=== PATIENT | male | born 1950 | race Caucasian/White ===

== ENCOUNTER → 2017-01-16 | Outpatient (CLI) | payer OTHER ==
[2013-12-28 11:56] VITALS: BP 189/98
[2017-01-16 10:52] LABS: ALANINE AMINOTRANSFERASE 17 Units/L (12-78); ALBUMIN 3.6 g/dL (3.4-5.0); ALKALINE PHOSPHATASE 75 Units/L (46-116); BLOOD UREA NITROGEN 24 mg/dL (7-18); CALCIUM 8.6 mg/dL (8.5-10.1); CARBON DIOXIDE 27.3 mmol/L (21-32); CHLORIDE 109 mmol/L (98-107); COR NA(FOR HYPERGLY) 144 mmol/L (136-145); CREATININE 1.12 mg/dL (0.70-1.30); GLUCOSE 113 mg/dL (65-99); SODIUM 144 mmol/L (136-145); TOTAL PROTEIN 7.5 g/dL (6.4-8.2); eGFR BLACK RACES > 60 (>60); eGFR NON BLACK RACES > 60 (>60)
[2017-01-16 10:55] LABS: ASPARTATE AMINO TRANSFERASE 18 Units/L (15-37)
[2017-01-16 11:35] LABS: ERYTHROCYTE SEDIMENTATION RATE 11 MM/HOUR (0-15)
[2017-01-16 11:40] LABS: BASOPHILS # (AUTO) 0.1 X10^3/uL (0.0-0.1); BASOPHILS % (AUTO) 1.3 % (0.2-1.0); EOSINOPHILS # (AUTO) 0.4 x10^3/uL (0.0-0.2); EOSINOPHILS % (AUTO) 5.2 % (0.9-2.9); HEMATOCRIT 40.8 % (42.0-54.0); HEMOGLOBIN 13.3 g/dL (13.5-18.0); LYMPHOCYTES % (AUTO) 14.6 % (21.0-51.0); MEAN CORPUSCULAR HEMOGLOBIN 29.6 pg (27.0-34.0); MEAN CORPUSCULAR HGB CONC 32.5 g/dL (33.0-35.0); MEAN PLATELET VOLUME 10.1 fL (7.4-11.0); MONOCYTES # (AUTO) 0.7 x10^3/uL (0.3-0.8); MONOCYTES % (AUTO) 10.4 % (0.0-13.0); NEUTROPHILS # (AUTO) 4.7 x10^3/uL (2.2-4.8); NEUTROPHILS % (AUTO) 68.5 % (42.0-75.0); PLATELET COUNT 224 X10^3/uL (150.0-450.0); RED BLOOD COUNT 4.49 X10^6/uL (4.7-6.0); RED CELL DISTRIBUTION WIDTH 15.3 % (11.6-16.5); WHITE BLOOD COUNT 6.8 X10^3/uL (3.6-10.0)
--- NOTE | 2017-01-16 12:34 | RAD ---
HISTORY: Bloating, abdominal pain Study: Flat and upright abdomen, AP chest Comparison: None Findings: The abdominal gas pattern demonstrates moderately severe dilatation of the transverse colon. The rig ht colon is not dilated. Little gas is present distal to the proximal descending colon. Although thi s could represent an ileus an obstructing lesion in the mid descending colon is possible and evaluat ion with barium enema or direct visualization should be considered. No pneumoperitoneum is identifie d. There is a 4 millimeter calcification overlying the left lower renal pole likely a renal calculus . An aortoiliac stent graft is present. The chest is clear. IMPRESSION: Dilatation of the transverse sobeida proximal to the proximal to mid descending . Although this could represent an ileus the possibility of a descending colon obstructing lesion could not be excluded an d evaluation with direct visualization or barium enema should be considered. Left lower pole renal calculus Reported By:
== END ==
LOC: LAB 08:14
PROVIDERS: ATTEND Nurse Practitioner Family
DX: R10.84 Generalized abdominal pain (principal); R10.12 Left upper quadrant pain
CPT/HCPCS: 36415; 74022; 80053; 82270; 85025; 85652; 86140; 87045; 87338; 87427; 87493; 87899

== ENCOUNTER → 2017-04-06 | Outpatient (CLI) | payer OTHER ==
[2013-12-28 11:56] VITALS: BP 189/98
[2017-04-06 14:17] LABS: CRYPTOSPORIDIUM PARVUM ANTIGEN NEGATIVE (NEGATIVE); GIARDIA LAMBLIA ANTIGEN NEGATIVE (NEGATIVE)
== END ==
LOC: LAB 11:58
PROVIDERS: ATTEND Nurse Practitioner Family
DX: R19.7 Diarrhea, unspecified (principal)
CPT/HCPCS: 82270; 87045; 87328; 87329; 87336; 87338; 87427; 87493; 87899

== ENCOUNTER 2017-04-07 17:14 | Inpatient (IN) | payer OTHER ==
[2017-04-07 20:12] VITALS: BMI 26.9
[2017-04-07] MEDS ORDERED: NS 1/2 1000 ML IV 1,000 ML IV ONE (20:20)
[2017-04-07] MEDS: NS 1/2 1000 ML IV 1,000 ML IV SCH (20:49)
[2017-04-07] MEDS: PEPCID 20 MG IV PREMIX* 20 MG/50 ML BAG IV SCH (20:50)
[2017-04-07] MEDS: PROTONIX INJ 40 MG VIAL IVP SCH ×2 (20:50→21:01)
[2017-04-07] MEDS: CIPRO IV 400 MG PREMIX* 400 MG/200 ML IV.SOLN. IV SCH (20:50)
[2017-04-07] MEDS: FLAGYL IV PREMIX 500 MG BAG 500 MG/100 ML BAG IV SCH (20:50)
[2017-04-08 04:32] LABS: BILIRUBIN,URINE NEGATIVE (NEGATIVE); BLOOD/HEMOGLOBIN,URINE NEGATIVE (NEGATIVE); GLUCOSE, URINE NEGATIVE (NEGATIVE); KETONES,URINE NEGATIVE (NEGATIVE); LEUKOCYTE ESTERASE ,URINE NEGATIVE (NEGATIVE); NITRITES,URINE NEGATIVE (NEGATIVE); PROTEIN,URINE 1+ (NEGATIVE); UROBILINOGEN,URINE NORMAL (NORMAL)
[2017-04-08 04:45] LABS: APPEARANCE,URINE CLEAR (CLEAR); BACTERIA,URINE NEGATIVE /HPF (NEGATIVE); COLOR,URINE YELLOW (YELLOW); RBC,URINE 0-3 /HPF (NEGATIVE); SQUAMOUS EPITHELIAL CELL,UR FEW /HPF (NEGATIVE)
[2017-04-08] MEDS: FLAGYL IV PREMIX 500 MG BAG 500 MG/100 ML BAG IV SCH ×3 (05:49→21:55)
[2017-04-08] MEDS: NS 1/2 1000 ML IV 1,000 ML IV SCH ×3 (05:49→20:40)
[2017-04-08] MEDS ORDERED: NS 1/2 1000 ML IV 1,000 ML IV ONE ×2 (05:53→20:26)
[2017-04-08 06:20] LABS: BASOPHILS % (AUTO) 0.8 % (0.2-1.0); EOSINOPHILS # (AUTO) 0.2 x10^3/uL (0.0-0.2); EOSINOPHILS % (AUTO) 4.8 % (0.9-2.9); HEMATOCRIT 35.7 % (42.0-54.0); HEMOGLOBIN 12.1 g/dL (13.5-18.0); LYMPHOCYTES # (AUTO) 0.9 X10^3/uL (1.3-2.9); LYMPHOCYTES % (AUTO) 17.3 % (21.0-51.0); MEAN CORPUSCULAR HEMOGLOBIN 30.3 pg (27.0-34.0); MEAN CORPUSCULAR HGB CONC 33.9 g/dL (33.0-35.0); MEAN CORPUSCULAR VOLUME 89.3 fL (80.0-100.0); MEAN PLATELET VOLUME 9.9 fL (7.4-11.0); MONOCYTES # (AUTO) 0.6 x10^3/uL (0.3-0.8); MONOCYTES % (AUTO) 11.2 % (0.0-13.0); NEUTROPHILS # (AUTO) 3.4 x10^3/uL (2.2-4.8); NEUTROPHILS % (AUTO) 65.9 % (42.0-75.0); PLATELET COUNT 166 X10^3/uL (150.0-450.0); RED CELL DISTRIBUTION WIDTH 14.4 % (11.6-16.5); WHITE BLOOD COUNT 5.1 X10^3/uL (3.6-10.0)
[2017-04-08 06:43] LABS: ALANINE AMINOTRANSFERASE 17 Units/L (12-78); ALBUMIN 3.2 g/dL (3.4-5.0); ALKALINE PHOSPHATASE 60 Units/L (46-116); ASPARTATE AMINO TRANSFERASE 16 Units/L (15-37); BLOOD UREA NITROGEN 15 mg/dL (7-18); CALCIUM 8.4 mg/dL (8.5-10.1); CARBON DIOXIDE 30.9 mmol/L (21-32); CHLORIDE 107 mmol/L (98-107); CREATININE 0.94 mg/dL (0.70-1.30); GLUCOSE 85 mg/dL (65-99); SODIUM 142 mmol/L (136-145); TOTAL PROTEIN 6.4 g/dL (6.4-8.2); eGFR BLACK RACES > 60 (>60); eGFR NON BLACK RACES > 60 (>60)
--- NOTE | 2017-04-08 06:43 | RAD ---
HISTORY: Abdominal pain Study: Acute abdominal series Comparison: Abdomen series done January 16, [address] of the abdomen done April 07, 2017 Findings: The trachea is midline. The cardiac silhouette is unremarkable. The lungs are clear without focal infiltrate or effusion. The bony thorax is unremarkable. Flat plate and upright evaluation of the abdomen demonstrates a gaseous distention of the transverse colon with a small amount of bowel gas present within the descending and ascending colon regions. T he findings are similar to prior studies of January 16, 2017. No free intraperitoneal air or fluid is se en . An aortoiliac endograft is present. Multiple small stones are present involving the left kidney . Osseous structures are intact . There are some small amount of contrast present within the cecum a nd ascending colon. The caliber of the structures is normal. A small amount of contrast is present w ithin the urinary bladder. No pathological soft tissue mass or calcification can be observed. The b geoff structures are grossly intact. IMPRESSION: 1. No acute cardiopulmonary disease. 2. Findings again compatible with a transverse colon ileus. No bowel obstruction or perforation is seen. Reported By:
[2017-04-08] MEDS: CIPRO IV 400 MG PREMIX* 400 MG/200 ML IV.SOLN. IV SCH ×2 (08:58→20:15)
[2017-04-08] MEDS: PEPCID 20 MG IV PREMIX* 20 MG/50 ML BAG IV SCH ×2 (08:58→20:15)
[2017-04-08] MEDS: PROTONIX INJ 40 MG VIAL IVP SCH ×2 (08:58→20:15)
[2017-04-08] MEDS ORDERED: ULTRAM PO PRN (10:38)
--- NOTE | 2017-04-08 10:43 | DR.UPDATE ---
H&P Update History and Physical Update: WAS SEEN IN THE OFFICE ON 04/07/27. A H&P WAS COMPLETED PRIOR TO ADMISSION. PATIENT HAS BEEN SEEN AND EXAMINED WITH NO CHANGES NOTED. Changes noted: NO Yes with the following:
[2017-04-08] MEDS ORDERED: NIFEDIPINE PO SCH (10:45)
[2017-04-08] MEDS: CELEXA PO SCH (11:08)
[2017-04-08] MEDS ORDERED: D5 LR 1000 ML 1,000 ML IV ONE (11:39)
--- NOTE | 2017-04-08 12:23 | PCM.PROG ---
Progress Note - Progress Note for Day of Date: 04/08/17 - Subjective Subjective: IS ALERT AND ORIENTED, SITTING UP IN BED ON MORNING ROUNDS. AT BEDSIDE. HE CONTINUES WITH COMPLAINTS OF DIFFUSE ABDOMINAL PAIN. ABDOMEN IS NOTED WITH MODERATE DISTENSION. BOWEL SOUNDS NOTED IN ALL QUADRANTS. HE REPORTS HISTORY OF AAA WITH REPAIR. HE ALSO REPORTS HAVING TWO COLONOSCOPIES WITHIN THE PAST YEAR. VITALS THIS AM ARE 97.8-60-21-95%-120/70. CBC WNL EXCEPT WBC 5.1, RBC 4.0, HGB 12.1, HCT 35.7. CMP WNL EXCEPT CALCIUM 8.4 , ALBUMIN 3.2. WE WILL CONTINUE WITH CURRENT PLAN OF CARE. WE ARE AWAITING GI CONSULT. WE WILL RECHECK LABS AND FOLLOW UP WITH PATIENT IN AM. - Past Medical Family Social History Past Med/Fam/Surg Hx: No changes since H&P Allergies: Allergies No Known Drug Allergies Allergy (Verified 04/07/17 20:37) - Review of Systems ROS: No change since H&P - Vital Signs and I&O's Vital Signs: Temperature 97.8 F Pulse Rate [Right Radial] 59 Respiratory Rate 20 Blood Pressure [Right Arm] 122/68 Blood Pressure 189/98 O2 Sat by Pulse Oximetry 92 Intake and Output: Intake & Output 04/06/17 04/07/17 04/08/17 04/09/17 11:59 11:59 11:59 11:59 Intake Total 750 Balance 750 - Physical Exam Oriented: Normal. negative: Time, Person, Place, Not Oriented, Unable to test, Other Eyes: Normal. negative: Blurred Vision, Diplopia, Discharge, Pain, Redness, Photophobia, Other Ear: Normal. negative: Right, Left, Swelling, Ecchymosis, Hemotypanum, Abrasion , Laceration Nose: Normal. negative: Injected, Discharge, Blood, Other Throat: Normal. negative: Tonsillar Hypertrophy, Red, Exudate, Dry, Other Respiratory: Normal. negative: Right, Left, Generalized, Superior, Inferior, Diminished, Wheezes, Rales, Rhonchi, OTHER Cardiovascular: Normal. negative: Tachycardia, Bradycardia, Irregular, S3, S4, Systolic, Diastolic, Murmur, Edema, Other : Normal. negative: Dysuria, Hematuria, Frequency, Discharge, Testicular Pain , Bleeding, , Other Auscultation: Bowel Sounds: Normal. negative: Bruit, Absent, Increased, Decreased, High Pitched, Other Palpation: Normal Tenderness: Diffuse, Moderate. negative: Normal, RUQ, RLQ, LUQ, LLQ, Epigastric , Periumbilical, Suprapubic, Mild, Severe, Rebound, Guarding, Rigidity, Other Skin: Normal. negative: Decreased Turgur, Rash, Papular, Macular, Maculopapular , Vesicular, Pustular, Petechial, Red, Tender, Hot, Diaphoresis, Wound, Bruising , Ecchymosis, Other Musculoskeletal: Normal. negative: Right, Left, Shoulder, Clavicle, Arm, Elbow , Forearm, Wrist, Hand, Hip, Thigh, Knee, Leg, Ankle, Foot, Back:Thoracic, Back: Lumbar, Back:Midline, Back:Paraspinous, Pelvis, Swelling, Tender, Deformity, Pulse Deficit, Motor Deficit, Sensory Deficit, Instability, Crepitance Psychiatric: Normal. negative: Anxiety, Depression, Agitation, Other Mood Description: Calm. negative: Angry, Apathetic, Depressed, Fearful, Flat, Happy, Hostile, Sad, Suspicious, Withdrawn, Anxious, Appropriate, Labile Affect: Angry. negative: Anxious, Depressed, Flat, Hysterical, Quiet, Violent, Normal Speech Pattern: Clear, Appropriate - Laboratory and Diagnostics Result Diagrams: 04/08/17 04:38 04/08/17 04:38 Labs: Laboratory WBC 5.1 X10^3/uL (3.6-10.0) 04/08/17 04:38 RBC 4.00 X10^6/uL (4.7-6.0) L 04/08/17 04:38 Hgb 12.1 g/dL (13.5-18.0) L 04/08/17 04:38 Hct 35.7 % (42.0-54.0) L 04/08/17 04:38 MCV 89.3 fL (80.0-100.0) 04/08/17 04:38 MCH 30.3 pg (27.0-34.0) 04/08/17 04:38 MCHC 33.9 g/dL (33.0-35.0) 04/08/17 04:38 RDW 14.4 % (11.6-16.5) 04/08/17 04:38 Plt Count 166 X10^3/uL (150.0-450.0) 04/08/17 04:38 MPV 9.9 fL (7.4-11.0) 04/08/17 04:38 Neut % 65.9 % (42.0-75.0) 04/08/17 04:38 Lymph % 17.3 % (21.0-51.0) L 04/08/17 04:38 [place] % 11.2 % (0.0-13.0) 04/08/17 04:38 Eos % 4.8 % (0.9-2.9) H 04/08/17 04:38 Baso % 0.8 % (0.2-1.0) 04/08/17 04:38 Neut # 3.4 x10^3/uL (2.2-4.8) 04/08/17 04:38 Lymph # 0.9 X10^3/uL (1.3-2.9) L 04/08/17 04:38 [place] # 0.6 x10^3/uL (0.3-0.8) 04/08/17 04:38 Eos # 0.2 x10^3/uL (0.0-0.2) 04/08/17 04:38 Baso # 0.0 X10^3/uL (0.0-0.1) 04/08/17 04:38 Absolute Nucleated RBC 0.1 /100WBC 04/08/17 04:38 Sodium 142 mmol/L (136-145) 04/08/17 04:38 Corrected Sodium TNP 04/08/17 04:38 Potassium 3.6 mmol/L (3.5-5.1) 04/08/17 04:38 Chloride 107 mmol/L (98-107) 04/08/17 04:38 Carbon Dioxide 30.9 mmol/L (21-32) 04/08/17 04:38 BUN 15 mg/dL (7-18) 04/08/17 04:38 Creatinine 0.94 mg/dL (0.70-1.30) 04/08/17 04:38 Est GFR (MDRD) Af Amer > 60 (>60) 04/08/17 04:38 Est GFR (MDRD) Non-Af > 60 (>60) 04/08/17 04:38 Glucose 85 mg/dL (65-99) 04/08/17 04:38 Calcium 8.4 mg/dL (8.5-10.1) L 04/08/17 04:38 Corrected Calcium 9.0 mg/dL (8.5-10.1) 04/08/17 04:38 Total Bilirubin 0.30 mg/dL (0.2-1.0) 04/08/17 04:38 AST 16 Units/L (15-37) 04/08/17 04:38 ALT 17 Units/L (12-78) 04/08/17 04:38 Alkaline Phosphatase 60 Units/L (46-116) 04/08/17 04:38 Total Protein 6.4 g/dL (6.4-8.2) 04/08/17 04:38 Albumin 3.2 g/dL (3.4-5.0) L 04/08/17 04:38 Globulin 3.2 g/dL (2.5-4.5) 04/08/17 04:38 Albumin/Globulin Ratio 1.0 Ratio (1.1-2.1) L 04/08/17 04:38 Specimen Type Clean catch urine 04/07/17 02:35 Urine Color Yellow (YELLOW) 04/07/17 02:35 Urine Appearance Clear (CLEAR) 04/07/17 02:35 Urine pH 6.0 (5.0 - 8.0) 04/07/17 02:35 Ur Specific [place] 1.020 (1.000-1.030) 04/07/17 02:35 Urine Protein 1+ (NEGATIVE) 04/07/17 02:35 Urine Glucose (UA) Negative (NEGATIVE) 04/07/17 02:35 Urine Ketones Negative (NEGATIVE) 04/07/17 02:35 Urine Occult Blood Negative (NEGATIVE) 04/07/17 02:35 Urine Nitrite Negative (NEGATIVE) 04/07/17 02:35 Urine Bilirubin Negative (NEGATIVE) 04/07/17 02:35 Urine Urobilinogen Normal (NORMAL) 04/07/17 02:35 Ur Leukocyte Esterase Negative (NEGATIVE) 04/07/17 02:35 Urine RBC 0-3 /HPF (NEGATIVE) 04/07/17 02:35 Urine WBC 0-3 /HPF (NEGATIVE) 04/07/17 02:35 Ur Squamous Epith Cells Few /HPF (NEGATIVE) 04/07/17 02:35 Urine Bacteria Negative /HPF (NEGATIVE) 04/07/17 02:35 Ur Culture Indicated? No/not indicated 04/07/17 02:35 - Plan (1) Ileus Status: Suspected Plan: GI CONSULT, CONTINUE TO MONITOR (2) Abdominal pain Status: Acute Qualifiers: Abdominal location: A Plan: GI CONSULT, CONTINUE PEPCID IV, CONTINUE PROTONIX IV, CONTINUE CIPRO AND FLAGYL, CONTINUE TO MONITOR
[2017-04-08] MEDS ORDERED: DIPRIVAN VIAL 20 ML ONE (12:47)
[2017-04-08] MEDS: NEURONTIN CAP 100 MG PO SCH (14:08)
[2017-04-08] MEDS: QUESTRAN PO SCH (20:16)
[2017-04-08] MEDS: NEURONTIN CAP 300 MG PO SCH (20:17)
[2017-04-08] MEDS: ZOCOR TAB 40 MG PO SCH (20:17)
[2017-04-08] MEDS: LOPRESSOR TAB 50 MG PO SCH (20:17)
[2017-04-09] MEDS ORDERED: NS 1/2 1000 ML IV 1,000 ML IV ONE ×2 (05:11→17:01)
[2017-04-09 05:19] LABS: ALANINE AMINOTRANSFERASE 16 Units/L (12-78); ALBUMIN 3.2 g/dL (3.4-5.0); ALKALINE PHOSPHATASE 59 Units/L (46-116); ASPARTATE AMINO TRANSFERASE 15 Units/L (15-37); BLOOD UREA NITROGEN 11 mg/dL (7-18); CALCIUM 8.5 mg/dL (8.5-10.1); CARBON DIOXIDE 29.2 mmol/L (21-32); CHLORIDE 107 mmol/L (98-107); COR CA(FOR HYPOALB) 9.1 mg/dL (8.5-10.1); GLUCOSE 90 mg/dL (65-99); SODIUM 142 mmol/L (136-145); TOTAL PROTEIN 6.5 g/dL (6.4-8.2); eGFR BLACK RACES > 60 (>60); eGFR NON BLACK RACES > 60 (>60)
[2017-04-09] MEDS: FLAGYL IV PREMIX 500 MG BAG 500 MG/100 ML BAG IV SCH ×3 (05:27→21:52)
[2017-04-09] MEDS: NS 1/2 1000 ML IV 1,000 ML IV SCH ×3 (05:27→17:13)
[2017-04-09 06:01] LABS: BASOPHILS % (AUTO) 0.6 % (0.2-1.0); EOSINOPHILS # (AUTO) 0.2 x10^3/uL (0.0-0.2); EOSINOPHILS % (AUTO) 3.7 % (0.9-2.9); HEMATOCRIT 34.8 % (42.0-54.0); HEMOGLOBIN 11.8 g/dL (13.5-18.0); LYMPHOCYTES # (AUTO) 0.8 X10^3/uL (1.3-2.9); LYMPHOCYTES % (AUTO) 14.9 % (21.0-51.0); MEAN CORPUSCULAR HEMOGLOBIN 30.3 pg (27.0-34.0); MEAN CORPUSCULAR HGB CONC 33.9 g/dL (33.0-35.0); MEAN CORPUSCULAR VOLUME 89.1 fL (80.0-100.0); MONOCYTES # (AUTO) 0.5 x10^3/uL (0.3-0.8); MONOCYTES % (AUTO) 10.5 % (0.0-13.0); NEUTROPHILS # (AUTO) 3.7 x10^3/uL (2.2-4.8); NEUTROPHILS % (AUTO) 70.3 % (42.0-75.0); PLATELET COUNT 167 X10^3/uL (150.0-450.0); RED CELL DISTRIBUTION WIDTH 14.5 % (11.6-16.5); WHITE BLOOD COUNT 5.2 X10^3/uL (3.6-10.0)
[2017-04-09] MEDS: QUESTRAN PO SCH ×2 (08:53→21:54)
[2017-04-09] MEDS: PROTONIX TAB 40 MG PO SCH (08:53)
[2017-04-09] MEDS: LOPRESSOR TAB 50 MG PO SCH ×2 (08:53→21:53)
[2017-04-09] MEDS: CIPRO IV 400 MG PREMIX* 400 MG/200 ML IV.SOLN. IV SCH ×2 (08:53→21:52)
[2017-04-09] MEDS: NEURONTIN CAP 100 MG PO SCH ×2 (08:53→14:01)
[2017-04-09] MEDS: CELEXA PO SCH (08:53)
[2017-04-09] MEDS: PEPCID 20 MG IV PREMIX* 20 MG/50 ML BAG IV SCH ×2 (08:53→21:52)
[2017-04-09] MEDS ORDERED: PROCARDIA XL PO SCH (09:00)
--- NOTE | 2017-04-09 10:19 | PCM.PROG ---
Progress Note - Progress Note for Day of Date: 04/09/17 - Subjective Subjective: IS ALERT AND ORIENTED, SITTING UP IN BED ON MORNING ROUNDS. AT BEDSIDE. HE CONTINUES WITH COMPLAINTS OF DIFFUSE ABDOMINAL PAIN. ABDOMEN IS NOTED WITH MODERATE DISTENSION. BOWEL SOUNDS NOTED IN ALL QUADRANTS. VITALS THIS AM ARE 97.8-60-21-95%-120/70. CBC WNL EXCEPT WBC 5.2, RBC 3.90, HGB 11.8, HCT 34.8. CMP WNL EXCEPT CALCIUM ALBUMIN 3.2. TOOK PATIENT FOR EGD YESTERDAY. 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 WE WILL PLAN TO CONSULT FOR FINDINGS OF CHOLELITHIASIS AND ILEUS THAT WAS FOUND ON ABD/PELVIS CT. WE WILL DISCONTINUE NIFEDIPINE AND START LISINOPRIL 20MG HS. WE WILL ORDER A CT ABD/PELVIS WITH CONTRAST FOR TOMORROW MORNING, RECHECK LABS AND FOLLOW UP WITH PATIENT IN AM. - Past Medical Family Social History Past Med/Fam/Surg Hx: No changes since H&P Allergies: Allergies No Known Drug Allergies Allergy (Verified 04/07/17 20:37) - Review of Systems ROS: No change since H&P - Vital Signs and I&O's Vital Signs: Temperature 98.0 F Pulse Rate [Right Radial] 63 Respiratory Rate 20 Blood Pressure [Right Arm] 169/75 Blood Pressure 189/98 O2 Sat by Pulse Oximetry 95 Intake and Output: Intake & Output 04/06/17 04/07/17 04/08/17 04/09/17 11:59 11:59 11:59 11:59 Intake Total 750 3012 Balance 750 3012 - Physical Exam Oriented: Normal. negative: Time, Person, Place, Not Oriented, Unable to test, Other Eyes: Normal. negative: Blurred Vision, Diplopia, Discharge, Pain, Redness, Photophobia, Other Ear: Normal. negative: Right, Left, Swelling, Ecchymosis, Hemotypanum, Abrasion , Laceration Nose: Normal. negative: Injected, Discharge, Blood, Other Throat: Normal. negative: Tonsillar Hypertrophy, Red, Exudate, Dry, Other Respiratory: Normal. negative: Right, Left, Generalized, Superior, Inferior, Diminished, Wheezes, Rales, Rhonchi, OTHER Cardiovascular: Normal. negative: Tachycardia, Bradycardia, Irregular, S3, S4, Systolic, Diastolic, Murmur, Edema, Other : Normal. negative: Dysuria, Hematuria, Frequency, Discharge, Testicular Pain , Bleeding, , Other Auscultation: Bowel Sounds: Normal. negative: Bruit, Absent, Increased, Decreased, High Pitched, Other Palpation: Normal Tenderness: Diffuse, Moderate. negative: Normal, RUQ, RLQ, LUQ, LLQ, Epigastric , Periumbilical, Suprapubic, Mild, Severe, Rebound, Guarding, Rigidity, Other Skin: Normal. negative: Decreased Turgur, Rash, Papular, Macular, Maculopapular , Vesicular, Pustular, Petechial, Red, Tender, Hot, Diaphoresis, Wound, Bruising , Ecchymosis, Other Musculoskeletal: Normal. negative: Right, Left, Shoulder, Clavicle, Arm, Elbow , Forearm, Wrist, Hand, Hip, Thigh, Knee, Leg, Ankle, Foot, Back:Thoracic, Back: Lumbar, Back:Midline, Back:Paraspinous, Pelvis, Swelling, Tender, Deformity, Pulse Deficit, Motor Deficit, Sensory Deficit, Instability, Crepitance Psychiatric: Normal. negative: Anxiety, Depression, Agitation, Other Mood Description: Calm. negative: Angry, Apathetic, Depressed, Fearful, Flat, Happy, Hostile, Sad, Suspicious, Withdrawn, Anxious, Appropriate, Labile Affect: Angry. negative: Anxious, Depressed, Flat, Hysterical, Quiet, Violent, Normal Speech Pattern: Clear, Appropriate - Laboratory and Diagnostics Result Diagrams: 04/09/17 03:55 04/09/17 03:55 Labs: Laboratory WBC 5.2 X10^3/uL (3.6-10.0) 04/09/17 03:55 RBC 3.90 X10^6/uL (4.7-6.0) L 04/09/17 03:55 Hgb 11.8 g/dL (13.5-18.0) L 04/09/17 03:55 Hct 34.8 % (42.0-54.0) L 04/09/17 03:55 MCV 89.1 fL (80.0-100.0) 04/09/17 03:55 MCH 30.3 pg (27.0-34.0) 04/09/17 03:55 MCHC 33.9 g/dL (33.0-35.0) 04/09/17 03:55 RDW 14.5 % (11.6-16.5) 04/09/17 03:55 Plt Count 167 X10^3/uL (150.0-450.0) 04/09/17 03:55 MPV 10.0 fL (7.4-11.0) 04/09/17 03:55 Neut % 70.3 % (42.0-75.0) 04/09/17 03:55 Lymph % 14.9 % (21.0-51.0) L 04/09/17 03:55 [place] % 10.5 % (0.0-13.0) 04/09/17 03:55 Eos % 3.7 % (0.9-2.9) H 04/09/17 03:55 Baso % 0.6 % (0.2-1.0) 04/09/17 03:55 Neut # 3.7 x10^3/uL (2.2-4.8) 04/09/17 03:55 Lymph # 0.8 X10^3/uL (1.3-2.9) L 04/09/17 03:55 [place] # 0.5 x10^3/uL (0.3-0.8) 04/09/17 03:55 Eos # 0.2 x10^3/uL (0.0-0.2) 04/09/17 03:55 Baso # 0.0 X10^3/uL (0.0-0.1) 04/09/17 03:55 Absolute Nucleated RBC 0.1 /100WBC 04/09/17 03:55 Sodium 142 mmol/L (136-145) 04/09/17 03:55 Corrected Sodium TNP 04/09/17 03:55 Potassium 3.9 mmol/L (3.5-5.1) 04/09/17 03:55 Chloride 107 mmol/L (98-107) 04/09/17 03:55 Carbon Dioxide 29.2 mmol/L (21-32) 04/09/17 03:55 BUN 11 mg/dL (7-18) 04/09/17 03:55 Creatinine 1.00 mg/dL (0.70-1.30) 04/09/17 03:55 Est GFR (MDRD) Af Amer > 60 (>60) 04/09/17 03:55 Est GFR (MDRD) Non-Af > 60 (>60) 04/09/17 03:55 Glucose 90 mg/dL (65-99) 04/09/17 03:55 Calcium 8.5 mg/dL (8.5-10.1) 04/09/17 03:55 Corrected Calcium 9.1 mg/dL (8.5-10.1) 04/09/17 03:55 Total Bilirubin 0.30 mg/dL (0.2-1.0) 04/09/17 03:55 AST 15 Units/L (15-37) 04/09/17 03:55 ALT 16 Units/L (12-78) 04/09/17 03:55 Alkaline Phosphatase 59 Units/L (46-116) 04/09/17 03:55 Total Protein 6.5 g/dL (6.4-8.2) 04/09/17 03:55 Albumin 3.2 g/dL (3.4-5.0) L 04/09/17 03:55 Globulin 3.3 g/dL (2.5-4.5) 04/09/17 03:55 Albumin/Globulin Ratio 1.0 Ratio (1.1-2.1) L 04/09/17 03:55 Specimen Type Clean catch urine 04/07/17 02:35 Urine Color Yellow (YELLOW) 04/07/17 02:35 Urine Appearance Clear (CLEAR) 04/07/17 02:35 Urine pH 6.0 (5.0 - 8.0) 04/07/17 02:35 Ur Specific [place] 1.020 (1.000-1.030) 04/07/17 02:35 Urine Protein 1+ (NEGATIVE) 04/07/17 02:35 Urine Glucose (UA) Negative (NEGATIVE) 04/07/17 02:35 Urine Ketones Negative (NEGATIVE) 04/07/17 02:35 Urine Occult Blood Negative (NEGATIVE) 04/07/17 02:35 Urine Nitrite Negative (NEGATIVE) 04/07/17 02:35 Urine Bilirubin Negative (NEGATIVE) 04/07/17 02:35 Urine Urobilinogen Normal (NORMAL) 04/07/17 02:35 Ur Leukocyte Esterase Negative (NEGATIVE) 04/07/17 02:35 Urine RBC 0-3 /HPF (NEGATIVE) 04/07/17 02:35 Urine WBC 0-3 /HPF (NEGATIVE) 04/07/17 02:35 Ur Squamous Epith Cells Few /HPF (NEGATIVE) 04/07/17 02:35 Urine Bacteria Negative /HPF (NEGATIVE) 04/07/17 02:35 Ur Culture Indicated? No/not indicated 04/07/17 02:35 Tissue Pathology To follow 04/08/17 13:10 - Plan (1) Ileus Status: Suspected Plan: GI CONSULT, CONTINUE TO MONITOR (2) Abdominal pain Status: Acute Qualifiers: Abdominal location: A Plan: GI CONSULT, CONTINUE PEPCID IV, CONTINUE PROTONIX IV, CONTINUE CIPRO AND FLAGYL, CONTINUE TO MONITOR (3) Hypertension Status: Acute Qualifiers: Hypertension type: essential hypertension Qualified Code(s): I10 - Essential (primary) hypertension Plan: START LISINOPRIL 20MG HS, CONTINUE LOPRESSOR 50MG PO BID, CONTINUE TO MONITOR (4) Depression Status: Acute Qualifiers: Depression Type: major depressive disorder Major depression recurrence: recurrent Active/Remission status: remission status unspecified Major depression episode severity: M Psychotic features: P Trimester: T Qualified Code(s): F33.9 - Major depressive disorder, recurrent, unspecified Plan: CONTINUE CELEXA 20MG DAILY, CONTINUE TO MONITOR (5) Hyperlipidemia Status: Acute Qualifiers: Hyperlipidemia type: H Plan: CONTINUE ZOCOR 40MG HS, CONTINUE TO MONITOR
[2017-04-09] MEDS ORDERED: ZESTRIL TAB 20 MG ONE (21:08)
[2017-04-09] MEDS: NEURONTIN CAP 300 MG PO SCH (21:52)
[2017-04-09] MEDS: ZESTRIL TAB 20 MG PO SCH (21:53)
[2017-04-09] MEDS: ZOCOR TAB 40 MG PO SCH (21:53)
[2017-04-10] MEDS ORDERED: NS 1/2 1000 ML IV 1,000 ML IV ONE ×3 (02:39→22:12)
[2017-04-10] MEDS: NS 1/2 1000 ML IV 1,000 ML IV SCH ×6 (03:19→22:16)
[2017-04-10] MEDS: FLAGYL IV PREMIX 500 MG BAG 500 MG/100 ML BAG IV SCH ×2 (05:36→13:27)
[2017-04-10 06:45] LABS: BASOPHILS # (AUTO) 0.1 X10^3/uL (0.0-0.1); BASOPHILS % (AUTO) 1.1 % (0.2-1.0); EOSINOPHILS # (AUTO) 0.2 x10^3/uL (0.0-0.2); EOSINOPHILS % (AUTO) 4.1 % (0.9-2.9); HEMATOCRIT 34.9 % (42.0-54.0); HEMOGLOBIN 11.6 g/dL (13.5-18.0); LYMPHOCYTES # (AUTO) 0.8 X10^3/uL (1.3-2.9); LYMPHOCYTES % (AUTO) 13.9 % (21.0-51.0); MEAN CORPUSCULAR HEMOGLOBIN 29.9 pg (27.0-34.0); MEAN CORPUSCULAR HGB CONC 33.2 g/dL (33.0-35.0); MEAN PLATELET VOLUME 10.2 fL (7.4-11.0); MONOCYTES # (AUTO) 0.6 x10^3/uL (0.3-0.8); MONOCYTES % (AUTO) 11.2 % (0.0-13.0); NEUTROPHILS # (AUTO) 3.9 x10^3/uL (2.2-4.8); NEUTROPHILS % (AUTO) 69.7 % (42.0-75.0); PLATELET COUNT 169 X10^3/uL (150.0-450.0); RED BLOOD COUNT 3.88 X10^6/uL (4.7-6.0); RED CELL DISTRIBUTION WIDTH 14.2 % (11.6-16.5); WHITE BLOOD COUNT 5.7 X10^3/uL (3.6-10.0)
[2017-04-10 07:18] LABS: ALANINE AMINOTRANSFERASE 17 Units/L (12-78); ALBUMIN 3.3 g/dL (3.4-5.0); ALKALINE PHOSPHATASE 55 Units/L (46-116); ASPARTATE AMINO TRANSFERASE 20 Units/L (15-37); BLOOD UREA NITROGEN 9 mg/dL (7-18); CALCIUM 8.8 mg/dL (8.5-10.1); CARBON DIOXIDE 28.1 mmol/L (21-32); CHLORIDE 106 mmol/L (98-107); COR CA(FOR HYPOALB) 9.4 mg/dL (8.5-10.1); CREATININE 1.09 mg/dL (0.70-1.30); GLUCOSE 92 mg/dL (65-99); SODIUM 142 mmol/L (136-145); TOTAL PROTEIN 6.5 g/dL (6.4-8.2); eGFR BLACK RACES > 60 (>60); eGFR NON BLACK RACES > 60 (>60)
[2017-04-10] MEDS: CIPRO IV 400 MG PREMIX* 400 MG/200 ML IV.SOLN. IV SCH (08:13)
[2017-04-10] MEDS: LOPRESSOR TAB 50 MG PO SCH ×2 (08:13→21:07)
[2017-04-10] MEDS: CELEXA PO SCH (08:13)
[2017-04-10] MEDS: NEURONTIN CAP 100 MG PO SCH ×2 (08:13→13:27)
[2017-04-10] MEDS: QUESTRAN PO SCH (08:14)
[2017-04-10] MEDS: PROTONIX TAB 40 MG PO SCH (08:14)
[2017-04-10] MEDS: PEPCID 20 MG IV PREMIX* 20 MG/50 ML BAG IV SCH ×2 (08:14→21:07)
[2017-04-10] MEDS ORDERED: NS 100 ML IV + SPIKE MINIBAG* 100 ML IV ONE (08:53)
--- NOTE | 2017-04-10 14:14 | CT ---
HISTORY: Abdominal pain, ileus Study: CT abdomen and pelvis with contrast Comparison: Radiograph 04/08/2017, CT 04/07/2017, CT 12/28/2013 Technique: Multiple axial images of the abdomen and pelvis were obtained with IV contrast. Oral contrast was a dministered. Dose reduction techniques including Automated Exposure Control (AEC) and adjustment of mA and kV were utilized. Findings: The visualized portions of the lung bases are unremarkable. The liver, spleen, pancreas, kidneys, a nd adrenal glands are unremarkable in their CT appearance. Cholelithiasis is noted. There are bilate ral nonobstructing renal calculi. The ureters are normal. No free intraperitoneal air. Again noted is marked gaseous distention of the transverse colon which appears to be chronic in nature. An underlying stricture or adhesion is difficult to exclude but ora l contrast does transit distal to the transition point at the splenic flexure. The appendix is lida l. No free fluid identified. The soft tissues and osseous structures are unremarkable. Stable abdominal aortic aneurysm post endo vascular repair. Patent aorto bi-iliac stent. [place] aneurysm sac measures 7.5 cm, unchanged from re cent prior. No pathologically enlarged lymph nodes are identified. Normal urinary bladder. IMPRESSION: 1. Stable gaseous distention of the transverse colon. Findings could be due to ileus versus partial obstruction. Oral contrast transits distal to the splenic flexure. 2. Cholelithiasis. 3. Bilateral nonobstructing renal calculi. 3. Stable aortic aneurysm post endovascular repair. Reported By:
[2017-04-10] MEDS: VSL#3 PO SCH (15:27)
[2017-04-10] MEDS ORDERED: ZESTRIL TAB 20 MG ONE (21:04)
[2017-04-10] MEDS: ZOCOR TAB 40 MG PO SCH (21:07)
[2017-04-10] MEDS: ZESTRIL TAB 20 MG PO SCH (21:07)
[2017-04-11] MEDS ORDERED: NS 1/2 1000 ML IV 1,000 ML IV ONE ×3 (05:05→20:32)
[2017-04-11] MEDS: NS 1/2 1000 ML IV 1,000 ML IV SCH ×3 (05:09→20:40)
[2017-04-11 05:25] LABS: BASOPHILS % (AUTO) 0.3 % (0.2-1.0); EOSINOPHILS # (AUTO) 0.3 x10^3/uL (0.0-0.2); EOSINOPHILS % (AUTO) 3.8 % (0.9-2.9); HEMOGLOBIN 11.7 g/dL (13.5-18.0); LYMPHOCYTES # (AUTO) 0.6 X10^3/uL (1.3-2.9); LYMPHOCYTES % (AUTO) 8.7 % (21.0-51.0); MEAN CORPUSCULAR HEMOGLOBIN 29.7 pg (27.0-34.0); MEAN CORPUSCULAR HGB CONC 33.4 g/dL (33.0-35.0); MEAN CORPUSCULAR VOLUME 88.9 fL (80.0-100.0); MEAN PLATELET VOLUME 9.8 fL (7.4-11.0); MONOCYTES # (AUTO) 0.6 x10^3/uL (0.3-0.8); MONOCYTES % (AUTO) 9.4 % (0.0-13.0); NEUTROPHILS # (AUTO) 5.3 x10^3/uL (2.2-4.8); NEUTROPHILS % (AUTO) 77.8 % (42.0-75.0); PLATELET COUNT 164 X10^3/uL (150.0-450.0); RED BLOOD COUNT 3.94 X10^6/uL (4.7-6.0); WHITE BLOOD COUNT 6.8 X10^3/uL (3.6-10.0)
[2017-04-11 05:33] LABS: ALANINE AMINOTRANSFERASE 18 Units/L (12-78); ALBUMIN 3.3 g/dL (3.4-5.0); ALKALINE PHOSPHATASE 54 Units/L (46-116); ASPARTATE AMINO TRANSFERASE 22 Units/L (15-37); BLOOD UREA NITROGEN 7 mg/dL (7-18); CALCIUM 8.4 mg/dL (8.5-10.1); CHLORIDE 106 mmol/L (98-107); CREATININE 1.05 mg/dL (0.70-1.30); GLUCOSE 90 mg/dL (65-99); SODIUM 141 mmol/L (136-145); TOTAL PROTEIN 6.5 g/dL (6.4-8.2); eGFR BLACK RACES > 60 (>60); eGFR NON BLACK RACES > 60 (>60)
[2017-04-11] MEDS: CELEXA PO SCH (08:20)
[2017-04-11] MEDS: PEPCID 20 MG IV PREMIX* 20 MG/50 ML BAG IV SCH ×2 (08:20→20:38)
[2017-04-11] MEDS: LOPRESSOR TAB 50 MG PO SCH ×2 (08:20→20:38)
[2017-04-11] MEDS: PROTONIX TAB 40 MG PO SCH (08:20)
[2017-04-11] MEDS: VSL#3 PO SCH (08:20)
[2017-04-11] MEDS ORDERED: BUTT CREAM (COMPOUND) TOP PRN (09:38)
[2017-04-11] MEDS ORDERED: ZESTRIL TAB 20 MG PO SCH (10:39)
[2017-04-11] MEDS ORDERED: ZESTRIL TAB 20 MG ONE (11:19)
[2017-04-11] MEDS: APRESOLINE TAB 25 MG PO SCH ×3 (11:45→21:25)
[2017-04-11 17:05] LABS: CRYPTOSPORIDIUM PARVUM ANTIGEN NEGATIVE (NEGATIVE); GIARDIA LAMBLIA ANTIGEN NEGATIVE (NEGATIVE)
[2017-04-11] MEDS: ZOCOR TAB 40 MG PO SCH (20:38)
[2017-04-12] MEDS ORDERED: NS 1/2 1000 ML IV 1,000 ML IV ONE ×3 (04:20→21:59)
[2017-04-12] MEDS: NS 1/2 1000 ML IV 1,000 ML IV SCH ×3 (04:55→22:01)
[2017-04-12 05:10] LABS: BASOPHILS % (AUTO) 0.5 % (0.2-1.0); EOSINOPHILS # (AUTO) 0.4 x10^3/uL (0.0-0.2); EOSINOPHILS % (AUTO) 5.6 % (0.9-2.9); HEMATOCRIT 35.7 % (42.0-54.0); LYMPHOCYTES # (AUTO) 0.9 X10^3/uL (1.3-2.9); LYMPHOCYTES % (AUTO) 12.4 % (21.0-51.0); MEAN CORPUSCULAR HGB CONC 33.7 g/dL (33.0-35.0); MEAN CORPUSCULAR VOLUME 89.1 fL (80.0-100.0); MEAN PLATELET VOLUME 9.9 fL (7.4-11.0); MONOCYTES # (AUTO) 0.7 x10^3/uL (0.3-0.8); MONOCYTES % (AUTO) 10.8 % (0.0-13.0); NEUTROPHILS # (AUTO) 4.8 x10^3/uL (2.2-4.8); NEUTROPHILS % (AUTO) 70.7 % (42.0-75.0); PLATELET COUNT 179 X10^3/uL (150.0-450.0); RED CELL DISTRIBUTION WIDTH 14.5 % (11.6-16.5); WHITE BLOOD COUNT 6.9 X10^3/uL (3.6-10.0)
[2017-04-12] MEDS: APRESOLINE TAB 25 MG PO SCH ×3 (05:12→21:16)
[2017-04-12 05:13] LABS: ALANINE AMINOTRANSFERASE 23 Units/L (12-78); ALBUMIN 3.3 g/dL (3.4-5.0); ALKALINE PHOSPHATASE 55 Units/L (46-116); ASPARTATE AMINO TRANSFERASE 27 Units/L (15-37); BLOOD UREA NITROGEN 6 mg/dL (7-18); CALCIUM 8.4 mg/dL (8.5-10.1); CARBON DIOXIDE 29.6 mmol/L (21-32); CHLORIDE 107 mmol/L (98-107); CREATININE 0.97 mg/dL (0.70-1.30); GLUCOSE 95 mg/dL (65-99); SODIUM 143 mmol/L (136-145); TOTAL PROTEIN 6.6 g/dL (6.4-8.2); eGFR BLACK RACES > 60 (>60); eGFR NON BLACK RACES > 60 (>60)
[2017-04-12] MEDS: PROTONIX TAB 40 MG PO SCH (09:50)
[2017-04-12] MEDS: VSL#3 PO SCH (09:50)
[2017-04-12] MEDS: CELEXA PO SCH (09:50)
[2017-04-12] MEDS: PEPCID 20 MG IV PREMIX* 20 MG/50 ML BAG IV SCH ×2 (09:50→21:17)
[2017-04-12] MEDS: LOPRESSOR TAB 50 MG PO SCH ×2 (09:50→21:16)
[2017-04-12] MEDS ORDERED: CATAPRES-TTS-2 TD SCH (10:00)
--- NOTE | 2017-04-12 10:50 | PCM.PROG ---
Progress Note - Progress Note for Day of Date: 04/12/17 - Subjective Subjective: IS ALERT AND ORIENTED, SITTING UP ON SIDE OF BED ON MORNING ROUNDS. AND SONS AT BEDSIDE. HE CONTINUES WITH COMPLAINTS OF DIFFUSE ABDOMINAL PAIN, BUT REPORTS SOME IMPROVEMENT IN PAIN SINCE WE SAW HIM WEDNESDAY. ACTIVE BOWEL SOUNDS NOTED IN ALL QUADRANTS. HE REPORTS BELCHING AND FLATULENCE. VITALS THIS AM ARE 98.3-62-18-98%-166/78. CBC WNL EXCEPT RBC 4.00, HGB 12.0, HCT 35.7. CMP WNL EXCEPT POTASSIUM 3.2, BUN 6, CALCIUM 8.4, ALBUMIN 3.3. CONSULTED FOR FINDINGS OF CHOLELITHIASIS AND ILEUS THAT WAS FOUND ON ABD/PELVIS CT. HE ORDERED A HIDA SCAN FOR TODAY. PATIENT'S BLOOD PRESSURE REMAINS ELEVATED. WE WILL START A CATAPRES 0.2MG PATCH. WE WILL RECHECK LABS AND FOLLOW UP WITH PATIENT IN AM. - Past Medical Family Social History Past Med/Fam/Surg Hx: No changes since H&P Allergies: Allergies lisinopril Adverse Reaction (Verified 04/11/17 11:46) - Review of Systems ROS: No change since H&P - Vital Signs and I&O's Vital Signs: Temperature 98.1 F Pulse Rate [Right Radial] 61 Respiratory Rate 20 Blood Pressure [Right Arm] 177/91 Blood Pressure 189/98 O2 Sat by Pulse Oximetry 98 Intake and Output: Intake & Output 04/09/17 04/10/17 04/11/17 04/12/17 11:59 11:59 11:59 11:59 Intake Total 3012 3035 2950 2290 Balance 3012 3035 2950 2290 - Physical Exam Oriented: Normal. negative: Time, Person, Place, Not Oriented, Unable to test, Other Eyes: Normal. negative: Blurred Vision, Diplopia, Discharge, Pain, Redness, Photophobia, Other Ear: Normal. negative: Right, Left, Swelling, Ecchymosis, Hemotypanum, Abrasion , Laceration Nose: Normal. negative: Injected, Discharge, Blood, Other Throat: Normal. negative: Tonsillar Hypertrophy, Red, Exudate, Dry, Other Respiratory: Normal. negative: Right, Left, Generalized, Superior, Inferior, Diminished, Wheezes, Rales, Rhonchi, OTHER Cardiovascular: Normal. negative: Tachycardia, Bradycardia, Irregular, S3, S4, Systolic, Diastolic, Murmur, Edema, Other : Normal. negative: Dysuria, Hematuria, Frequency, Discharge, Testicular Pain , Bleeding, , Other Auscultation: Bowel Sounds: Normal. negative: Bruit, Absent, Increased, Decreased, High Pitched, Other Palpation: Normal Tenderness: Diffuse, Moderate. negative: Normal, RUQ, RLQ, LUQ, LLQ, Epigastric , Periumbilical, Suprapubic, Mild, Severe, Rebound, Guarding, Rigidity, Other Skin: Normal. negative: Decreased Turgur, Rash, Papular, Macular, Maculopapular , Vesicular, Pustular, Petechial, Red, Tender, Hot, Diaphoresis, Wound, Bruising , Ecchymosis, Other Musculoskeletal: Normal. negative: Right, Left, Shoulder, Clavicle, Arm, Elbow , Forearm, Wrist, Hand, Hip, Thigh, Knee, Leg, Ankle, Foot, Back:Thoracic, Back: Lumbar, Back:Midline, Back:Paraspinous, Pelvis, Swelling, Tender, Deformity, Pulse Deficit, Motor Deficit, Sensory Deficit, Instability, Crepitance Psychiatric: Normal. negative: Anxiety, Depression, Agitation, Other Mood Description: Calm. negative: Angry, Apathetic, Depressed, Fearful, Flat, Happy, Hostile, Sad, Suspicious, Withdrawn, Anxious, Appropriate, Labile Affect: Angry. negative: Anxious, Depressed, Flat, Hysterical, Quiet, Violent, Normal Speech Pattern: Clear, Appropriate - Laboratory and Diagnostics Result Diagrams: 04/12/17 03:45 04/12/17 03:45 Labs: 04/11/17 10:41 Stool Stool Culture - Preliminary 04/11/17 10:41 Stool - Final Laboratory WBC 6.9 X10^3/uL (3.6-10.0) 04/12/17 03:45 RBC 4.00 X10^6/uL (4.7-6.0) L 04/12/17 03:45 Hgb 12.0 g/dL (13.5-18.0) L 04/12/17 03:45 Hct 35.7 % (42.0-54.0) L 04/12/17 03:45 MCV 89.1 fL (80.0-100.0) 04/12/17 03:45 MCH 30.0 pg (27.0-34.0) 04/12/17 03:45 MCHC 33.7 g/dL (33.0-35.0) 04/12/17 03:45 RDW 14.5 % (11.6-16.5) 04/12/17 03:45 Plt Count 179 X10^3/uL (150.0-450.0) 04/12/17 03:45 MPV 9.9 fL (7.4-11.0) 04/12/17 03:45 Neut % 70.7 % (42.0-75.0) 04/12/17 03:45 Lymph % 12.4 % (21.0-51.0) L 04/12/17 03:45 [place] % 10.8 % (0.0-13.0) 04/12/17 03:45 Eos % 5.6 % (0.9-2.9) H 04/12/17 03:45 Baso % 0.5 % (0.2-1.0) 04/12/17 03:45 Neut # 4.8 x10^3/uL (2.2-4.8) 04/12/17 03:45 Lymph # 0.9 X10^3/uL (1.3-2.9) L 04/12/17 03:45 [place] # 0.7 x10^3/uL (0.3-0.8) 04/12/17 03:45 Eos # 0.4 x10^3/uL (0.0-0.2) H 04/12/17 03:45 Baso # 0.0 X10^3/uL (0.0-0.1) 04/12/17 03:45 Absolute Nucleated RBC 0.0 /100WBC 04/12/17 03:45 Sodium 143 mmol/L (136-145) 04/12/17 03:45 Corrected Sodium TNP 04/12/17 03:45 Potassium 3.2 mmol/L (3.5-5.1) L 04/12/17 03:45 Chloride 107 mmol/L (98-107) 04/12/17 03:45 Carbon Dioxide 29.6 mmol/L (21-32) 04/12/17 03:45 BUN 6 mg/dL (7-18) L 04/12/17 03:45 Creatinine 0.97 mg/dL (0.70-1.30) 04/12/17 03:45 Est GFR (MDRD) Af Amer > 60 (>60) 04/12/17 03:45 Est GFR (MDRD) Non-Af > 60 (>60) 04/12/17 03:45 Glucose 95 mg/dL (65-99) 04/12/17 03:45 Calcium 8.4 mg/dL (8.5-10.1) L 04/12/17 03:45 Corrected Calcium 9.0 mg/dL (8.5-10.1) 04/12/17 03:45 Total Bilirubin 0.30 mg/dL (0.2-1.0) 04/12/17 03:45 AST 27 Units/L (15-37) 04/12/17 03:45 ALT 23 Units/L (12-78) 04/12/17 03:45 Alkaline Phosphatase 55 Units/L (46-116) 04/12/17 03:45 Total Protein 6.6 g/dL (6.4-8.2) 04/12/17 03:45 Albumin 3.3 g/dL (3.4-5.0) L 04/12/17 03:45 Globulin 3.3 g/dL (2.5-4.5) 04/12/17 03:45 Albumin/Globulin Ratio 1.0 Ratio (1.1-2.1) L 04/12/17 03:45 Carcinoembryonic Ag 2.2 ng/mL (0.0-3.0) 04/08/17 04:38 Specimen Type Clean catch urine 04/07/17 02:35 Urine Color Yellow (YELLOW) 04/07/17 02:35 Urine Appearance Clear (CLEAR) 04/07/17 02:35 Urine pH 6.0 (5.0 - 8.0) 04/07/17 02:35 Ur Specific [place] 1.020 (1.000-1.030) 04/07/17 02:35 Urine Protein 1+ (NEGATIVE) 04/07/17 02:35 Urine Glucose (UA) Negative (NEGATIVE) 04/07/17 02:35 Urine Ketones Negative (NEGATIVE) 04/07/17 02:35 Urine Occult Blood Negative (NEGATIVE) 04/07/17 02:35 Urine Nitrite Negative (NEGATIVE) 04/07/17 02:35 Urine Bilirubin Negative (NEGATIVE) 04/07/17 02:35 Urine Urobilinogen Normal (NORMAL) 04/07/17 02:35 Ur Leukocyte Esterase Negative (NEGATIVE) 04/07/17 02:35 Urine RBC 0-3 /HPF (NEGATIVE) 04/07/17 02:35 Urine WBC 0-3 /HPF (NEGATIVE) 04/07/17 02:35 Ur Squamous Epith Cells Few /HPF (NEGATIVE) 04/07/17 02:35 Urine Bacteria Negative /HPF (NEGATIVE) 04/07/17 02:35 Ur Culture Indicated? No/not indicated 04/07/17 02:35 Stool Description 125 brown loose 04/11/17 14:05 Stl Occult Blood (IFOB) Negative (NEGATIVE) 04/11/17 14:05 Stool for White Cells No wbc's seen (None) 04/11/17 14:05 Stl C. diff Tox B Gene Negative (NEGATIVE) 04/11/17 10:42 Stl C. diff 027-NAP1-BI Negative (NEGATIVE) 04/11/17 10:42 Cryptosporid parvum Ag Negative (NEGATIVE) 04/11/17 14:05 E. histolytica Antigen Negative (NEGATIVE) 04/11/17 14:05 Giardia lamblia Ag Negative (NEGATIVE) 04/11/17 14:05 Tissue Pathology To follow 04/08/17 13:10 - Plan (1) Ileus Status: Suspected Plan: CONTINUE IV FLUIDS, CONTINUE CIPRO AND FLAGYL, CONTINUE TO MONITOR (2) Abdominal pain Status: Acute Qualifiers: Abdominal location: A Plan: CONTINUE PEPCID IV, CONTINUE PROTONIX IV, CONTINUE CIPRO AND FLAGYL, CONTINUE TO MONITOR (3) Hypertension Status: Acute Qualifiers: Hypertension type: essential hypertension Qualified Code(s): I10 - Essential (primary) hypertension Plan: START CATAPRES 0.2MG PATCH, CONTINUE LOPRESSOR 50MG PO BID, CONTINUE TO MONITOR (4) Depression Status: Acute Qualifiers: Depression Type: major depressive disorder Major depression recurrence: recurrent Active/Remission status: remission status unspecified Major depression episode severity: M Psychotic features: P Trimester: T Qualified Code(s): F33.9 - Major depressive disorder, recurrent, unspecified Plan: CONTINUE CELEXA 20MG DAILY, CONTINUE TO MONITOR (5) Hyperlipidemia Status: Acute Qualifiers: Hyperlipidemia type: H Plan: CONTINUE ZOCOR 40MG HS, CONTINUE TO MONITOR
[2017-04-12] MEDS ORDERED: K-RIDER 10 MEQ/NS 100 ML 10 MEQ/100 ML BAG IV PRN (11:03)
[2017-04-12] MEDS ORDERED: POTASSIUM CHLORIDE LIQ 20 MEQ UDC PO PRN (11:03)
[2017-04-12] MEDS ORDERED: K-LYTE EFFERVESCENT PO PRN (11:03)
[2017-04-12] MEDS ORDERED: K-DUR TAB 20 MEQ PO PRN (11:03)
--- NOTE | 2017-04-12 13:19 | NM ---
Examination: Nuclear medicine hepatobiliary scan without gallbladder ejection fraction. Clinical History: Weight loss, diarrhea. Technique: Following the intravenous administration of 5.4 millicuries of 99 m technetium Choletec, multiple serial spot scintiphotos of the upper abdomen were obtained. The patient was not given CCK intravenously due to the presence of gallstones. Comparison: CT of the abdomen and pelvis dated 04/10/2017. Findings: There is normal physiologic uptake of the radiopharmaceutical by the liver. The gallbladder is visua lized at 10 minutes and the small bowel is visualized at 25 minutes. Impression: Negative nuclear medicine hepatobiliary scan. Findings exclude the diagnosis of an acute cholecystit is. CCK was not administered due to the presence of gallstones and the gallbladder ejection fraction was not calculated. Chronic cholecystitis/gallbladder dyskinesia can therefore not be excluded. Reported By:
[2017-04-12] MEDS: ZOCOR TAB 40 MG PO SCH (21:16)
[2017-04-12] MEDS: CHECK PATCH XX SCH (21:18)
[2017-04-13 05:22] LABS: BASOPHILS % (AUTO) 0.7 % (0.2-1.0); EOSINOPHILS # (AUTO) 0.3 x10^3/uL (0.0-0.2); EOSINOPHILS % (AUTO) 4.7 % (0.9-2.9); HEMATOCRIT 34.6 % (42.0-54.0); HEMOGLOBIN 11.6 g/dL (13.5-18.0); LYMPHOCYTES # (AUTO) 0.8 X10^3/uL (1.3-2.9); LYMPHOCYTES % (AUTO) 13.5 % (21.0-51.0); MEAN CORPUSCULAR HEMOGLOBIN 29.9 pg (27.0-34.0); MEAN CORPUSCULAR HGB CONC 33.7 g/dL (33.0-35.0); MEAN CORPUSCULAR VOLUME 88.8 fL (80.0-100.0); MEAN PLATELET VOLUME 10.2 fL (7.4-11.0); MONOCYTES # (AUTO) 0.7 x10^3/uL (0.3-0.8); MONOCYTES % (AUTO) 11.2 % (0.0-13.0); NEUTROPHILS # (AUTO) 4.3 x10^3/uL (2.2-4.8); NEUTROPHILS % (AUTO) 69.9 % (42.0-75.0); PLATELET COUNT 161 X10^3/uL (150.0-450.0); RED CELL DISTRIBUTION WIDTH 14.5 % (11.6-16.5); WHITE BLOOD COUNT 6.1 X10^3/uL (3.6-10.0)
[2017-04-13 05:24] LABS: ALANINE AMINOTRANSFERASE 21 Units/L (12-78); ALBUMIN 3.1 g/dL (3.4-5.0); ALKALINE PHOSPHATASE 52 Units/L (46-116); ASPARTATE AMINO TRANSFERASE 20 Units/L (15-37); BLOOD UREA NITROGEN 7 mg/dL (7-18); CALCIUM 8.3 mg/dL (8.5-10.1); CARBON DIOXIDE 28.7 mmol/L (21-32); CHLORIDE 108 mmol/L (98-107); CREATININE 1.01 mg/dL (0.70-1.30); GLUCOSE 92 mg/dL (65-99); SODIUM 142 mmol/L (136-145); TOTAL PROTEIN 6.3 g/dL (6.4-8.2); eGFR BLACK RACES > 60 (>60); eGFR NON BLACK RACES > 60 (>60)
[2017-04-13] MEDS: APRESOLINE TAB 25 MG PO SCH ×3 (05:28→21:05)
[2017-04-13] MEDS ORDERED: NS 1/2 1000 ML IV 1,000 ML IV ONE (05:30)
[2017-04-13] MEDS: NS 1/2 1000 ML IV 1,000 ML IV SCH ×2 (05:31→14:56)
[2017-04-13] MEDS ORDERED: CATAPRES-TTS-3 TD SCH (10:00)
--- NOTE | 2017-04-13 10:23 | PCM.PROG ---
Progress Note - Progress Note for Day of Date: 04/13/17 - Subjective Subjective: IS ALERT AND ORIENTED, SITTING UP ON SIDE OF BED ON MORNING ROUNDS. AND SONS AT BEDSIDE. HE REPORTS FEELING BETTER THIS MORNING AND DENIES ABDOMINAL PAIN. ABDOMEN REMAINS DISTENDED, BUT LESS THAN PREVIOUS DAYS. ACTIVE BOWEL SOUNDS NOTED IN ALL QUADRANTS. HE REPORTS PASSING MORE GAS THROUGHOUT THE NIGHT AND HAVING TWO BOWEL MOVEMENTS. VITALS THIS AM ARE 98.2-60-16-98%-192/88. CBC WNL EXCEPT RBC 3.90, HGB 11.6, HCT 34.6. CMP WNL EXCEPT CHLORIDE 108, CALCIUM 8.3, TOTAL PROTEIN 6.3, ALBUMIN 3.1. HIDA SCAN REPORTED NEGATIVE FOR CHOLECYSTITIS. WE WILL CONSULT WITH ON FINDINGS AGAIN. PATIENT IS MEDICALLY CLEAR FOR SURGERY SHOULD DECIDE TO REMOVE HIS GALLBLADDER. PATIENT'S BLOOD PRESSURE REMAINS ELEVATED. WE WILL INCREASE CATAPRES PATCH AND INCREASE HYDRALAZINE TO 100MG TID. WE WILL RECHECK LABS AND FOLLOW UP WITH PATIENT IN AM. - Past Medical Family Social History Past Med/Fam/Surg Hx: No changes since H&P Allergies: Allergies lisinopril Adverse Reaction (Verified 04/11/17 11:46) - Review of Systems ROS: No change since H&P - Vital Signs and I&O's Vital Signs: Temperature 98.1 F Pulse Rate [Right Radial] 61 Respiratory Rate 20 Blood Pressure [Right Arm] 168/78 Blood Pressure 189/98 O2 Sat by Pulse Oximetry 99 Intake and Output: Intake & Output 04/10/17 04/11/17 04/12/17 04/13/17 11:59 11:59 11:59 11:59 Intake Total 3035 2950 2290 72139 Balance 3035 2950 2290 64455 - Physical Exam Oriented: Normal. negative: Time, Person, Place, Not Oriented, Unable to test, Other Eyes: Normal. negative: Blurred Vision, Diplopia, Discharge, Pain, Redness, Photophobia, Other Ear: Normal. negative: Right, Left, Swelling, Ecchymosis, Hemotypanum, Abrasion , Laceration Nose: Normal. negative: Injected, Discharge, Blood, Other Throat: Normal. negative: Tonsillar Hypertrophy, Red, Exudate, Dry, Other Respiratory: Normal. negative: Right, Left, Generalized, Superior, Inferior, Diminished, Wheezes, Rales, Rhonchi, OTHER Cardiovascular: Normal. negative: Tachycardia, Bradycardia, Irregular, S3, S4, Systolic, Diastolic, Murmur, Edema, Other : Normal. negative: Dysuria, Hematuria, Frequency, Discharge, Testicular Pain , Bleeding, , Other Auscultation: Bowel Sounds: Normal. negative: Bruit, Absent, Increased, Decreased, High Pitched, Other Palpation: Normal Tenderness: Diffuse, Moderate. negative: Normal, RUQ, RLQ, LUQ, LLQ, Epigastric , Periumbilical, Suprapubic, Mild, Severe, Rebound, Guarding, Rigidity, Other Skin: Normal. negative: Decreased Turgur, Rash, Papular, Macular, Maculopapular , Vesicular, Pustular, Petechial, Red, Tender, Hot, Diaphoresis, Wound, Bruising , Ecchymosis, Other Musculoskeletal: Normal. negative: Right, Left, Shoulder, Clavicle, Arm, Elbow , Forearm, Wrist, Hand, Hip, Thigh, Knee, Leg, Ankle, Foot, Back:Thoracic, Back: Lumbar, Back:Midline, Back:Paraspinous, Pelvis, Swelling, Tender, Deformity, Pulse Deficit, Motor Deficit, Sensory Deficit, Instability, Crepitance Psychiatric: Normal. negative: Anxiety, Depression, Agitation, Other Mood Description: Calm. negative: Angry, Apathetic, Depressed, Fearful, Flat, Happy, Hostile, Sad, Suspicious, Withdrawn, Anxious, Appropriate, Labile Affect: Angry. negative: Anxious, Depressed, Flat, Hysterical, Quiet, Violent, Normal Speech Pattern: Clear, Appropriate - Laboratory and Diagnostics Result Diagrams: 04/13/17 04:20 04/13/17 04:20 Labs: 04/11/17 10:41 Stool Stool Culture - Final 04/11/17 10:41 Stool - Final Laboratory WBC 6.1 X10^3/uL (3.6-10.0) 04/13/17 04:20 RBC 3.90 X10^6/uL (4.7-6.0) L 04/13/17 04:20 Hgb 11.6 g/dL (13.5-18.0) L 04/13/17 04:20 Hct 34.6 % (42.0-54.0) L 04/13/17 04:20 MCV 88.8 fL (80.0-100.0) 04/13/17 04:20 MCH 29.9 pg (27.0-34.0) 04/13/17 04:20 MCHC 33.7 g/dL (33.0-35.0) 04/13/17 04:20 RDW 14.5 % (11.6-16.5) 04/13/17 04:20 Plt Count 161 X10^3/uL (150.0-450.0) 04/13/17 04:20 MPV 10.2 fL (7.4-11.0) 04/13/17 04:20 Neut % 69.9 % (42.0-75.0) 04/13/17 04:20 Lymph % 13.5 % (21.0-51.0) L 04/13/17 04:20 [place] % 11.2 % (0.0-13.0) 04/13/17 04:20 Eos % 4.7 % (0.9-2.9) H 04/13/17 04:20 Baso % 0.7 % (0.2-1.0) 04/13/17 04:20 Neut # 4.3 x10^3/uL (2.2-4.8) 04/13/17 04:20 Lymph # 0.8 X10^3/uL (1.3-2.9) L 04/13/17 04:20 [place] # 0.7 x10^3/uL (0.3-0.8) 04/13/17 04:20 Eos # 0.3 x10^3/uL (0.0-0.2) H 04/13/17 04:20 Baso # 0.0 X10^3/uL (0.0-0.1) 04/13/17 04:20 Absolute Nucleated RBC 0.0 /100WBC 04/13/17 04:20 Sodium 142 mmol/L (136-145) 04/13/17 04:20 Corrected Sodium TNP 04/13/17 04:20 Potassium 3.6 mmol/L (3.5-5.1) 04/13/17 04:20 Chloride 108 mmol/L (98-107) H 04/13/17 04:20 Carbon Dioxide 28.7 mmol/L (21-32) 04/13/17 04:20 BUN 7 mg/dL (7-18) 04/13/17 04:20 Creatinine 1.01 mg/dL (0.70-1.30) 04/13/17 04:20 Est GFR (MDRD) Af Amer > 60 (>60) 04/13/17 04:20 Est GFR (MDRD) Non-Af > 60 (>60) 04/13/17 04:20 Glucose 92 mg/dL (65-99) 04/13/17 04:20 Calcium 8.3 mg/dL (8.5-10.1) L 04/13/17 04:20 Corrected Calcium 9.0 mg/dL (8.5-10.1) 04/13/17 04:20 Total Bilirubin 0.20 mg/dL (0.2-1.0) 04/13/17 04:20 AST 20 Units/L (15-37) 04/13/17 04:20 ALT 21 Units/L (12-78) 04/13/17 04:20 Alkaline Phosphatase 52 Units/L (46-116) 04/13/17 04:20 Total Protein 6.3 g/dL (6.4-8.2) L 04/13/17 04:20 Albumin 3.1 g/dL (3.4-5.0) L 04/13/17 04:20 Globulin 3.2 g/dL (2.5-4.5) 04/13/17 04:20 Albumin/Globulin Ratio 1.0 Ratio (1.1-2.1) L 04/13/17 04:20 Carcinoembryonic Ag 2.2 ng/mL (0.0-3.0) 04/08/17 04:38 Specimen Type Clean catch urine 04/07/17 02:35 Urine Color Yellow (YELLOW) 04/07/17 02:35 Urine Appearance Clear (CLEAR) 04/07/17 02:35 Urine pH 6.0 (5.0 - 8.0) 04/07/17 02:35 Ur Specific [place] 1.020 (1.000-1.030) 04/07/17 02:35 Urine Protein 1+ (NEGATIVE) 04/07/17 02:35 Urine Glucose (UA) Negative (NEGATIVE) 04/07/17 02:35 Urine Ketones Negative (NEGATIVE) 04/07/17 02:35 Urine Occult Blood Negative (NEGATIVE) 04/07/17 02:35 Urine Nitrite Negative (NEGATIVE) 04/07/17 02:35 Urine Bilirubin Negative (NEGATIVE) 04/07/17 02:35 Urine Urobilinogen Normal (NORMAL) 04/07/17 02:35 Ur Leukocyte Esterase Negative (NEGATIVE) 04/07/17 02:35 Urine RBC 0-3 /HPF (NEGATIVE) 04/07/17 02:35 Urine WBC 0-3 /HPF (NEGATIVE) 04/07/17 02:35 Ur Squamous Epith Cells Few /HPF (NEGATIVE) 04/07/17 02:35 Urine Bacteria Negative /HPF (NEGATIVE) 04/07/17 02:35 Ur Culture Indicated? No/not indicated 04/07/17 02:35 Stool Description 125 brown loose 04/11/17 14:05 Stl Occult Blood (IFOB) Negative (NEGATIVE) 04/11/17 14:05 Stool for White Cells No wbc's seen (None) 04/11/17 14:05 Stl C. diff Tox B Gene Negative (NEGATIVE) 04/11/17 10:42 Stl C. diff [id number]-BI Negative (NEGATIVE) 04/11/17 10:42 Cryptosporid parvum Ag Negative (NEGATIVE) 04/11/17 14:05 E. histolytica Antigen Negative (NEGATIVE) 04/11/17 14:05 Giardia lamblia Ag Negative (NEGATIVE) 04/11/17 14:05 Tissue Pathology To follow 04/08/17 13:10 - Plan (1) Ileus Status: Suspected Plan: CONTINUE IV FLUIDS, CONTINUE CIPRO AND FLAGYL, CONTINUE TO MONITOR (2) Abdominal pain Status: Acute Qualifiers: Abdominal location: generalized Qualified Code(s): R10.84 - Generalized abdominal pain Plan: CONTINUE PEPCID IV, CONTINUE PROTONIX IV, CONTINUE CIPRO AND FLAGYL, CONTINUE TO MONITOR (3) Cholelithiasis Status: Acute Qualifiers: Cholelithiasis location: gallbladder Cholecystitis presence: without cholecystitis Cholangitis presence: C Cholecystitis acuity: C Cholangitis acuity: C Biliary obstruction: without biliary obstruction Qualified Code(s) : K80.20 - Calculus of gallbladder without cholecystitis without obstruction Plan: SURGICAL CONSULT, CONTINUE TO MONITOR (4) Hypertension Status: Acute Qualifiers: Hypertension type: essential hypertension Qualified Code(s): I10 - Essential (primary) hypertension Plan: START CATAPRES 0.2MG PATCH, CONTINUE LOPRESSOR 50MG PO BID, CONTINUE TO MONITOR (5) Depression Status: Acute Qualifiers: Depression Type: major depressive disorder Major depression recurrence: recurrent Active/Remission status: remission status unspecified Major depression episode severity: M Psychotic features: P Trimester: T Qualified Code(s): F33.9 - Major depressive disorder, recurrent, unspecified Plan: CONTINUE CELEXA 20MG DAILY, CONTINUE TO MONITOR (6) Hyperlipidemia Status: Chronic Qualifiers: Hyperlipidemia type: mixed hyperlipidemia Qualified Code(s): E78.2 - Mixed hyperlipidemia Plan: CONTINUE ZOCOR 40MG HS, CONTINUE TO MONITOR
[2017-04-13] MEDS: LOPRESSOR TAB 50 MG PO SCH ×2 (10:51→21:05)
[2017-04-13] MEDS: VSL#3 PO SCH (10:51)
[2017-04-13] MEDS: PEPCID 20 MG IV PREMIX* 20 MG/50 ML BAG IV SCH ×2 (10:52→21:05)
[2017-04-13] MEDS: PROTONIX TAB 40 MG PO SCH (10:52)
[2017-04-13] MEDS: CELEXA PO SCH (10:52)
[2017-04-13] MEDS: CHECK PATCH XX SCH ×2 (10:53→21:06)
[2017-04-13] MEDS: ZOCOR TAB 40 MG PO SCH (21:05)
[2017-04-14] MEDS: APRESOLINE TAB 25 MG PO SCH ×2 (05:25→14:02)
[2017-04-14 05:29] LABS: BASOPHILS % (AUTO) 0.7 % (0.2-1.0); EOSINOPHILS # (AUTO) 0.3 x10^3/uL (0.0-0.2); EOSINOPHILS % (AUTO) 4.5 % (0.9-2.9); HEMATOCRIT 34.9 % (42.0-54.0); HEMOGLOBIN 11.6 g/dL (13.5-18.0); LYMPHOCYTES # (AUTO) 0.8 X10^3/uL (1.3-2.9); LYMPHOCYTES % (AUTO) 13.1 % (21.0-51.0); MEAN CORPUSCULAR HEMOGLOBIN 29.4 pg (27.0-34.0); MEAN CORPUSCULAR HGB CONC 33.2 g/dL (33.0-35.0); MEAN CORPUSCULAR VOLUME 88.6 fL (80.0-100.0); MONOCYTES # (AUTO) 0.8 x10^3/uL (0.3-0.8); MONOCYTES % (AUTO) 11.7 % (0.0-13.0); NEUTROPHILS # (AUTO) 4.5 x10^3/uL (2.2-4.8); PLATELET COUNT 164 X10^3/uL (150.0-450.0); RED BLOOD COUNT 3.94 X10^6/uL (4.7-6.0); RED CELL DISTRIBUTION WIDTH 14.4 % (11.6-16.5); WHITE BLOOD COUNT 6.5 X10^3/uL (3.6-10.0)
[2017-04-14 05:35] LABS: ALANINE AMINOTRANSFERASE 20 Units/L (12-78); ALBUMIN 3.2 g/dL (3.4-5.0); ALKALINE PHOSPHATASE 48 Units/L (46-116); ASPARTATE AMINO TRANSFERASE 17 Units/L (15-37); BLOOD UREA NITROGEN 12 mg/dL (7-18); CALCIUM 8.2 mg/dL (8.5-10.1); CARBON DIOXIDE 27.8 mmol/L (21-32); CHLORIDE 106 mmol/L (98-107); COR CA(FOR HYPOALB) 8.8 mg/dL (8.5-10.1); CREATININE 1.02 mg/dL (0.70-1.30); GLUCOSE 95 mg/dL (65-99); SODIUM 141 mmol/L (136-145); TOTAL PROTEIN 6.4 g/dL (6.4-8.2); eGFR BLACK RACES > 60 (>60); eGFR NON BLACK RACES > 60 (>60)
[2017-04-14] MEDS: LOPRESSOR TAB 50 MG PO SCH (09:15)
[2017-04-14] MEDS: PROTONIX TAB 40 MG PO SCH (09:15)
[2017-04-14] MEDS: PEPCID 20 MG IV PREMIX* 20 MG/50 ML BAG IV SCH (09:15)
[2017-04-14] MEDS: CHECK PATCH XX SCH (09:15)
[2017-04-14] MEDS: CELEXA PO SCH (09:15)
[2017-04-14] MEDS: VSL#3 PO SCH (09:15)
[2017-04-14 13:51] VITALS: BP 139/66
== END 2017-04-14 16:25 | disposition home or self-care (01) | DRG 389 ==
LOC: OBS 17:14 → MED/SURG 18:43
PROVIDERS: ADMIT Internal Medicine; ATTEND Internal Medicine
PROC: 0DB48ZX Excision of Esophagogastric Junction, Via Natural or Artificial Opening Endoscopic, Diagnostic (ICD-10-PCS; 2017-04-08)
PROC: 0DB88ZX Excision of Small Intestine, Via Natural or Artificial Opening Endoscopic, Diagnostic (ICD-10-PCS; 2017-04-08)
PROC: 0DB68ZX Excision of Stomach, Via Natural or Artificial Opening Endoscopic, Diagnostic (ICD-10-PCS; principal; 2017-04-08 15:00)
DX: K56.69 Other intestinal obstruction (principal); R10.84 Generalized abdominal pain; I10 Essential (primary) hypertension; R19.7 Diarrhea, unspecified; K21.9 Gastro-esophageal reflux disease without esophagitis; I71.4 Abdominal aortic aneurysm, without rupture; R14.0 Abdominal distension (gaseous); R10.13 Epigastric pain; K22.711 Barrett's esophagus with high grade dysplasia; K29.90 Gastroduodenitis, unspecified, without bleeding; K80.80 Other cholelithiasis without obstruction; E78.2 Mixed hyperlipidemia; F33.8 Other recurrent depressive disorders
CPT/HCPCS: 36415; 74022; 74177; 78226; 80053; 81001; 82270; 82378; 84132; 85025; 87045; 87205; 87328; 87329; 87336; 87427; 87493; 87899; 88304; A4222; C9113; S0028; S0030; A4217; J0744; J3490; J7120

== ENCOUNTER → 2017-11-29 | Outpatient (CLI) | payer OTHER ==
[2017-11-29 13:55] LABS: BASOPHILS # (AUTO) 0.2 X10^3/uL (0.0-0.1); BASOPHILS % (AUTO) 2.3 % (0.2-1.0); EOSINOPHILS # (AUTO) 0.3 x10^3/uL (0.0-0.2); EOSINOPHILS % (AUTO) 3.7 % (0.9-2.9); HEMATOCRIT 40.2 % (42.0-54.0); HEMOGLOBIN 13.5 g/dL (13.5-18.0); LYMPHOCYTES # (AUTO) 1.1 X10^3/uL (1.3-2.9); LYMPHOCYTES % (AUTO) 15.5 % (21.0-51.0); MEAN CORPUSCULAR HEMOGLOBIN 30.1 pg (27.0-34.0); MEAN CORPUSCULAR HGB CONC 33.6 g/dL (33.0-35.0); MEAN CORPUSCULAR VOLUME 89.6 fL (80.0-100.0); MONOCYTES # (AUTO) 0.6 x10^3/uL (0.3-0.8); MONOCYTES % (AUTO) 7.8 % (0.0-13.0); NEUTROPHILS % (AUTO) 70.7 % (42.0-75.0); PLATELET COUNT 231 X10^3/uL (150.0-450.0); RED BLOOD COUNT 4.48 X10^6/uL (4.7-6.0); RED CELL DISTRIBUTION WIDTH 16.4 % (11.6-16.5); WHITE BLOOD COUNT 7.1 X10^3/uL (3.6-10.0)
[2017-11-29 14:05] LABS: ALANINE AMINOTRANSFERASE 17 Units/L (12-78); ALBUMIN 3.8 g/dL (3.4-5.0); ALKALINE PHOSPHATASE 92 Units/L (46-116); ASPARTATE AMINO TRANSFERASE 13 Units/L (15-37); BLOOD UREA NITROGEN 16 mg/dL (7-18); CALCIUM 9.1 mg/dL (8.5-10.1); CARBON DIOXIDE 31.1 mmol/L (21-32); CHLORIDE 102 mmol/L (98-107); COR NA(FOR HYPERGLY) 140 mmol/L (136-145); CREATININE 1.14 mg/dL (0.70-1.30); SODIUM 140 mmol/L (136-145); TOTAL PROTEIN 7.9 g/dL (6.4-8.2); eGFR BLACK RACES > 60 (>60); eGFR NON BLACK RACES > 60 (>60)
[2017-11-29 14:37] LABS: IRON 56 ug/dL (50-175); TOTAL IRON BINDING CAPACITY 285 ug/dL (250-450)
[2017-12-03 06:50] LABS: PSA TOTAL < 0.1 ng/mL (0.0-4.0)
== END ==
LOC: LAB 13:30
PROVIDERS: ATTEND Internal Medicine Medical Oncology
DX: C61 Malignant neoplasm of prostate (principal); Z79.899 Other long term (current) drug therapy
CPT/HCPCS: 36415; 80053; 82306; 82607; 82728; 82746; 83540; 83550; 84153; 84154; 85025

== ENCOUNTER 2018-01-06 08:26 | Day surgery (SDC) | payer OTHER ==
[2018-01-06] MEDS ORDERED: D5 LR 1000 ML 1,000 ML IV ONE (08:36)
[2018-01-06] MEDS ORDERED: DIPRIVAN VIAL 20 ML ONE (10:31)
[2018-01-06 11:22] VITALS: BP 134/67
== END 2018-01-06 11:24 | disposition home or self-care (01) ==
LOC: SURG1 08:26
PROVIDERS: ATTEND Internal Medicine Gastroenterology
PROC: 0DB38ZX Excision of Lower Esophagus, Via Natural or Artificial Opening Endoscopic, Diagnostic (ICD-10-PCS; principal; 2018-01-06 11:15)
PROC: 0DJ08ZZ Inspection of Upper Intestinal Tract, Via Natural or Artificial Opening Endoscopic (ICD-10-PCS; principal; 2018-01-06 11:15)
PROC: 0DB68ZX Excision of Stomach, Via Natural or Artificial Opening Endoscopic, Diagnostic (ICD-10-PCS; principal; 2018-01-06 11:15)
DX: R10.13 Epigastric pain (principal); K21.9 Gastro-esophageal reflux disease without esophagitis; Z87.19 Personal history of other diseases of the digestive system; K20.8 Other esophagitis; K29.60 Other gastritis without bleeding
CPT/HCPCS: A4217; J3490; J7120

== ENCOUNTER 2018-02-28 11:12 | Inpatient (IN) ==
--- NOTE | 2018-02-28 11:58 | DR.GENAD ---
HPI - PCP Primary Care Physician: FIDENCIO LEZAMA - Complaint/Symptoms Chief Complaint Doctors Comments: I agree with statement as written Chief Complaint:: WEAKNESS WITH COMPLAINT OF DIARRHEA ALL WEEK. WENT TO SEE PMD AND THEY WERE CONCERNED BECAUSE PT HAS ANEURYSM WITH SURGICAL REPAIR AND SHE HEARD "GURGLING" AND WAS CONCERNED. PT IS STAGGERING WHEN HE WALKS Self Treatment fo Chief Complaint: TOOK OFF CLONIDINE PATCH AT MD OFFICE - Source History Provided: Patient, Family Member - Mode of Arrival Mode of Arrival: Ambulatory - Timing Onset of Chief Complaint: 02/22/18 PMH - PMH Past Medical History: Yes Past Medical History: Coronary Artery Disease, Dyslipidemia, Hypertension, Kidney Stones Past Medical History Comment: GALLSTONES Past Surgical History: Yes Surgical History: AAA Repair, Other - Family History History of Family Medical Conditions: Yes Family Medical History: Diabetes Mellitus, Cancer, Coronary Artery Disease, Hypertension - Social History Type of Tobacco Use: None Alcohol Use: None Do you use any recreational Drugs:: No Lives With: Family Lives Where: Home - infectious screening In the last 2 months have you had wt loss of >10#?: NO Have you had fever, night sweats or hemotysis?: No Have you traveled outside the country in the last 6 months?: No Isolation: Standard ROS - Review of Systems Eyes: No Symptoms Reported ENTM: No Symptoms Reported Respiratoy: No Symptoms Reported Cardiovascular: No Symptoms Reported Gastrointestinal/Abdominal: No Symptoms Reported Genitourinary: No Symptoms Reported Neurological: No Symptoms Reported Musculoskeletal: No Symptoms Reported Integumentary: No Symptoms Reported Hematologic/Lymphatic: No Symptoms Reported Endocrine: No Symptoms Reported Psychiatric: No Symptoms Reported All Other Systems: Reviewed and Negative PE - General General Appearance: Alert, In No Apparent Distress - Head Head Exam: Normal Inspection, Atraumatic - Eyes Eye exam: Normal Appearance, PERRL, EOMI - ENT ENT Exam: Normal Exam External Ear Exam: Normal External Inspection TM/Canal Exam: Bilateral Normal Nose Exam: Normal Nose Exam Mouth Exam: Normal Inspection Throat Exam: Normal Inspection - Neck Neck Exam: Normal Inspection, Full ROM - Chest Chest Inspection: Normal Inspection - Respiratory Respiratory Exam: Normal Lung Sounds Bilat Respiratory Exam: Bilateral Clear to Auscultation - Cardiovascular Cardiovascular Exam: Regular Rate, Normal Rhythm - Abdominal Exam Abdominal Exam: Normal Inspection, Normal Bowel Sounds Abdominal Tenderness: Other (distended). negative: RUQ, RLQ, LUQ, LLQ, Epigastrium, Suprapubic, Diffuse, Mild, Moderate, Severe - Extremities Extremities Exam: Normal Inspection, Full ROM - Back Back Exam: Normal Inspection, Full ROM - Neurologic Neurological Exam: Alert, Oriented X3, CN II-XII Intact - Psychiatric Psychiatric Exam: Normal Affect - Skin Skin Exam: Warm, Dry, Intact - Vital Signs Vitals: Temperature 96.4 F Pulse Rate [Apical] 60 Pulse Rate 65 Respiratory Rate 16 Blood Pressure [Right Arm] 125/58 Blood Pressure 103/61 O2 Sat by Pulse Oximetry 97 Course - Consultation Called: 14:15 (Dr Fontenot agreed to admit for further evaluation) ROR - Labs Reviewed Result Diagrams: 02/28/18 12:11 02/28/18 12:11 - XRAY XRAY Interpreted by: Radiologist (CT Ab/P with Gaseous distention of the transverse colon with partial obstruction at the level of the upper proximal desending colon. This may be on the basis of bowel stricture or adhesions.) - Labs Reviewed Laboratory: WBC 2.9 X10^3/uL (3.6-10.0) L 02/28/18 12:11 RBC 4.73 X10^6/uL (4.7-6.0) 02/28/18 12:11 Hgb 13.9 g/dL (13.5-18.0) 02/28/18 12:11 Hct 42.6 % (42.0-54.0) 02/28/18 12:11 MCV 90.1 fL (80.0-100.0) 02/28/18 12:11 MCH 29.5 pg (27.0-34.0) 02/28/18 12:11 MCHC 32.7 g/dL (33.0-35.0) L 02/28/18 12:11 RDW 14.7 % (11.6-16.5) 02/28/18 12:11 Plt Count 144 X10^3/uL (150.0-450.0) L 02/28/18 12:11 MPV 10.3 fL (7.4-11.0) 02/28/18 12:11 Neut % (Auto) 60.0 % (42.0-75.0) 02/28/18 12:11 Lymph % (Auto) 20.1 % (21.0-51.0) L 02/28/18 12:11 [place] % (Auto) 13.5 % (0.0-13.0) H 02/28/18 12:11 Eos % (Auto) 5.7 % (0.9-2.9) H 02/28/18 12:11 Baso % (Auto) 0.7 % (0.2-1.0) 02/28/18 12:11 Neut # (Auto) 1.8 x10^3/uL (2.2-4.8) L 02/28/18 12:11 Lymph # (Auto) 0.6 X10^3/uL (1.3-2.9) L 02/28/18 12:11 [place] # (Auto) 0.4 x10^3/uL (0.3-0.8) 02/28/18 12:11 Eos # (Auto) 0.2 x10^3/uL (0.0-0.2) 02/28/18 12:11 Baso # (Auto) 0.0 X10^3/uL (0.0-0.1) 02/28/18 12:11 Absolute Nucleated RBC 0.1 /100WBC 02/28/18 12:11 INR Target Range - 02/28/18 12:11 INR 0.96 (0.8-1.3) 02/28/18 12:11 Sodium 139 mmol/L (136-145) 02/28/18 12:11 Corrected Sodium TNP 02/28/18 12:11 Potassium 4.6 mmol/L (3.5-5.1) 02/28/18 12:11 Chloride 103 mmol/L (98-107) 02/28/18 12:11 Carbon Dioxide 29.2 mmol/L (21-32) 02/28/18 12:11 BUN 20 mg/dL (7-18) H 02/28/18 12:11 Creatinine 1.34 mg/dL (0.70-1.30) H 02/28/18 12:11 Est GFR (MDRD) Af Amer > 60 (>60) 02/28/18 12:11 Est GFR (MDRD) Non-Af 57 (>60) L 02/28/18 12:11 Glucose 98 mg/dL (65-99) 02/28/18 12:11 Calcium 8.3 mg/dL (8.5-10.1) L 02/28/18 12:11 Corrected Calcium TNP 02/28/18 12:11 Magnesium 2.0 mg/dL (1.7-2.9) 02/28/18 12:11 Total Bilirubin 0.40 mg/dL (0.2-1.0) 02/28/18 12:11 AST 31 Units/L (15-37) 02/28/18 12:11 ALT 19 Units/L (12-78) 02/28/18 12:11 Alkaline Phosphatase 67 Units/L (46-116) 02/28/18 12:11 Creatine Kinase 103 Units/L (39-308) 02/28/18 12:11 CK-MB (CK-2) < 1.0 ng/mL (0-4.0) 02/28/18 12:11 CK/CKMB % Calc 1.0 % (<4) 02/28/18 12:11 Troponin I < 0.02 ng/mL (0-1.5) 02/28/18 12:11 Total Protein 7.1 g/dL (6.4-8.2) 02/28/18 12:11 Albumin 3.6 g/dL (3.4-5.0) 02/28/18 12:11 Globulin 3.5 g/dL (2.5-4.5) 02/28/18 12:11 Albumin/Globulin Ratio 1.0 Ratio (1.1-2.1) L 02/28/18 12:11 - Diagnosis Discharge Problem: Bowel obstruction Qualifiers: Intestinal obstruction type: other intestinal obstruction Intestinal obstruction extent: unspecified extent Qualified Code(s): K56.699 - Other intestinal obstruction unspecified as to partial versus complete obstruction - Discharge Plan Disposition: ADMITTED INPATIENT Condition: Stable - Follow ups/Referrals Follow ups/Referrals: RILEY REYNOLDS [Primary Care Provider] - 3 days - Instructions
[2018-02-28] MEDS: NS 1000 ML 1,000 ML IV SCH ×2 (12:21→22:30)
[2018-02-28 12:22] LABS: BASOPHILS % (AUTO) 0.7 % (0.2-1.0); EOSINOPHILS # (AUTO) 0.2 x10^3/uL (0.0-0.2); EOSINOPHILS % (AUTO) 5.7 % (0.9-2.9); HEMATOCRIT 42.6 % (42.0-54.0); HEMOGLOBIN 13.9 g/dL (13.5-18.0); LYMPHOCYTES # (AUTO) 0.6 X10^3/uL (1.3-2.9); LYMPHOCYTES % (AUTO) 20.1 % (21.0-51.0); MEAN CORPUSCULAR HEMOGLOBIN 29.5 pg (27.0-34.0); MEAN CORPUSCULAR HGB CONC 32.7 g/dL (33.0-35.0); MEAN CORPUSCULAR VOLUME 90.1 fL (80.0-100.0); MEAN PLATELET VOLUME 10.3 fL (7.4-11.0); MONOCYTES # (AUTO) 0.4 x10^3/uL (0.3-0.8); MONOCYTES % (AUTO) 13.5 % (0.0-13.0); NEUTROPHILS # (AUTO) 1.8 x10^3/uL (2.2-4.8); PLATELET COUNT 144 X10^3/uL (150.0-450.0); RED BLOOD COUNT 4.73 X10^6/uL (4.7-6.0); RED CELL DISTRIBUTION WIDTH 14.7 % (11.6-16.5); WHITE BLOOD COUNT 2.9 X10^3/uL (3.6-10.0)
--- NOTE | 2018-02-28 12:27 | RAD ---
Indication: Difficulty breathing Exam: Portable chest Comparison: 04/08/2017 Findings: The heart is normal. The pulmonary vessels are normal. No consolidation or effusion is seen . There is overlying EKG lead artifact. There is interposition of the colon under the right hemidiaph ragm. Impression: Stable chest with no acute abnormality seen. Reported By:
--- NOTE | 2018-02-28 12:29 | CT ---
History: Weakness and diarrhea all week. Staggering gait. Study: CT head without contrast. Sagittal and coronal reformations were provided. Comparison: None Findings: The ventricles and sulci are normal in size and configuration for patient age without mass effect. There is moderately severe patchy diffuse periventricular white matter low attenuation. There is no hemorrhage or mass. The Impression: 1. Severe periventricular white matter patchy low attenuation compatible with small vessel disease 2. Severe right maxillary sinus disease Reported By:
[2018-02-28 12:36] LABS: ALANINE AMINOTRANSFERASE 19 Units/L (12-78); ALBUMIN 3.6 g/dL (3.4-5.0); ALKALINE PHOSPHATASE 67 Units/L (46-116); ASPARTATE AMINO TRANSFERASE 31 Units/L (15-37); BLOOD UREA NITROGEN 20 mg/dL (7-18); CALCIUM 8.3 mg/dL (8.5-10.1); CARBON DIOXIDE 29.2 mmol/L (21-32); CHLORIDE 103 mmol/L (98-107); CREATININE 1.34 mg/dL (0.70-1.30); SODIUM 139 mmol/L (136-145); TOTAL PROTEIN 7.1 g/dL (6.4-8.2); eGFR NON BLACK RACES 57 (>60)
[2018-02-28 12:48] LABS: CREATINE KINASE 103 Units/L (39-308); CREATINE KINASE MB < 1.0 ng/mL (0-4.0); TROPONIN I < 0.02 ng/mL (0-1.5)
[2018-02-28] MEDS ORDERED: NS 250 ML IV 250 ML IV ONE (13:13)
--- NOTE | 2018-02-28 14:01 | CT ---
HISTORY: Weakness with complaint of diarrhea all week. Patient has history of aneurysm with repair. P atchristopher heard gurgling and was concerned. Prior history of gallstones, abdominal aortic aneurysm repai r. Study: CT abdomen and pelvis with IV contrast Comparison: 04/10/2017. Technique: Multiple axial images of the abdomen and pelvis were obtained from the lung bases to the pubic symphy sis during the administration of IV contrast. Coronal and sagittal images are also reviewed. Dose re duction techniques utilized automatic exposure control. Findings: The visualized portions of the lung bases are unremarkable. The liver, spleen, pancreas, and adrenal glands are unremarkable in their CT appearance. There are multiple calcified gallstones present with in the gallbladder. There are bilateral nonobstructing 4 mm kidney stones. No renal mass or hydroneph rosis is seen. There is cortical thinning present involving the postero medial aspect of the right ki dney. An aorto iliac endograft is present. The graft is about the same size as on the prior examinati on. There is no evidence of endo graft leak.. No significant mesenteric lymphadenopathy or stranding can be observed. No free fluid or free air is seen within the abdomen. No bowel wall thickening is present. There is marked gaseous distention of the transverse colon. The diameter of the colon is u p to about 10-11 cm. A partial obstruction appears to be at the level of the proximal descending colo n. No bowel wall thickening or mass is seen. The nature of the obstruction is not certain. This may b e on the basis of stricture or adhesions. Endoscopic evaluation is encouraged. The descending and sig moid colon regions appear collapsed. Only a small amount of uncomplicated appearing diverticulosis is seen involving the sigmoid colon.. The urinary bladder is grossly unremarkable. The bony structures are grossly intact. IMPRESSION: Gaseous distention of the transverse colon with partial obstruction at the level of the upper proxima l descending colon. This may be on the basis of bowel stricture or adhesions. Endoscopic evaluation i s encouraged. Descending and sigmoid colon regions appear to be collapsed. Only a small amount of unc omplicated appearing diverticulosis is seen involving the sigmoid colon. Stable appearing aortoiliac endograft. Multiple small calcified gallstones. Small nonobstructing kidney stones bilaterally. Reported By:
--- NOTE | 2018-02-28 15:31 | RAD ---
Examination: Portable KUB History: NG placement Findings: Nasogastric tube terminates below the diaphragm in a position consistent with proximal to m id stomach. There is no coiling of the tube. There is marked gaseous distention of bowel elevating th e diaphragm. Impression: NG tube position as described. Reported By:
[2018-02-28] MEDS ORDERED: ULTRAM PO PRN (21:14)
[2018-02-28 21:36] VITALS: BMI 24.2
[2018-02-28] MEDS ORDERED: CATAPRES-TTS-3 TD SCH (22:00)
[2018-02-28] MEDS: PROTONIX INJ 40 MG VIAL IVP SCH (22:29)
[2018-02-28] MEDS: PEPCID 20 MG IV PREMIX* 20 MG/50 ML BAG IV SCH (22:30)
[2018-02-28] MEDS: LOPRESSOR TAB 50 MG PO SCH (22:30)
[2018-03-01 06:26] LABS: BASOPHILS % (AUTO) 1.2 % (0.2-1.0); EOSINOPHILS # (AUTO) 0.2 x10^3/uL (0.0-0.2); EOSINOPHILS % (AUTO) 5.9 % (0.9-2.9); HEMATOCRIT 39.4 % (42.0-54.0); HEMOGLOBIN 13.1 g/dL (13.5-18.0); LYMPHOCYTES # (AUTO) 0.4 X10^3/uL (1.3-2.9); LYMPHOCYTES % (AUTO) 15.3 % (21.0-51.0); MEAN CORPUSCULAR HEMOGLOBIN 29.6 pg (27.0-34.0); MEAN CORPUSCULAR HGB CONC 33.1 g/dL (33.0-35.0); MEAN CORPUSCULAR VOLUME 89.2 fL (80.0-100.0); MEAN PLATELET VOLUME 9.3 fL (7.4-11.0); MONOCYTES # (AUTO) 0.4 x10^3/uL (0.3-0.8); MONOCYTES % (AUTO) 13.2 % (0.0-13.0); NEUTROPHILS # (AUTO) 1.7 x10^3/uL (2.2-4.8); NEUTROPHILS % (AUTO) 64.4 % (42.0-75.0); PLATELET COUNT 120 X10^3/uL (150.0-450.0); RED BLOOD COUNT 4.42 X10^6/uL (4.7-6.0); RED CELL DISTRIBUTION WIDTH 14.7 % (11.6-16.5); WHITE BLOOD COUNT 2.7 X10^3/uL (3.6-10.0)
[2018-03-01 06:33] LABS: ALANINE AMINOTRANSFERASE 18 Units/L (12-78); ALBUMIN 3.2 g/dL (3.4-5.0); ALKALINE PHOSPHATASE 60 Units/L (46-116); ASPARTATE AMINO TRANSFERASE 25 Units/L (15-37); BLOOD UREA NITROGEN 16 mg/dL (7-18); CALCIUM 7.9 mg/dL (8.5-10.1); CARBON DIOXIDE 24.8 mmol/L (21-32); CHLORIDE 106 mmol/L (98-107); COR CA(FOR HYPOALB) 8.5 mg/dL (8.5-10.1); CREATININE 1.07 mg/dL (0.70-1.30); SODIUM 140 mmol/L (136-145); TOTAL PROTEIN 6.8 g/dL (6.4-8.2); eGFR NON BLACK RACES > 60 (>60)
--- NOTE | 2018-03-01 06:44 | RAD ---
HISTORY: Small bowel obstruction. Prior history of hypertension, abdominal aortic aneurysm (treated by endo graft ) Study: KUB Comparison: KUB done 02/28/[address] scan of the abdomen done 02/28/2018. Findings: Further gaseous distention of the transverse colon is seen now up to 13 cm. A nasogastric tube is in place with the tip at the level of the gastric body and the side hole at the level of the junction of the gastric fundus and gastric body. Aortoiliac endo grafts are present. Small amount of bowel gas a nd stool is present within the ascending colon. There is a minimal amount of air present within the d escending and rectosigmoid regions. Contrast material is present within the urinary bladder from the prior CT. IMPRESSION: Further gaseous distention of the transverse colon, now up to about 13 cm. This is again compatible w ith the partial obstruction seen on the prior CT scan. No significant gaseous distention of the small bowel is seen. Reported By:
[2018-03-01] MEDS ORDERED: PATIENT'S HOME MEDICATION (Cholecalciferol (Vitamin D3) [Vitamin D3] 1 CAP) PO SCH (09:00)
[2018-03-01] MEDS: PEPCID 20 MG IV PREMIX* 20 MG/50 ML BAG IV SCH ×2 (09:28→20:49)
[2018-03-01] MEDS: VITAMIN D3 PO SCH (09:29)
[2018-03-01] MEDS: LOPRESSOR TAB 50 MG PO SCH ×2 (09:29→20:48)
[2018-03-01] MEDS: PROTONIX INJ 40 MG VIAL IVP SCH ×2 (09:30→20:49)
[2018-03-01] MEDS: CELEXA PO SCH (09:30)
--- NOTE | 2018-03-01 10:05 | DR.PROGNOT ---
Hospital Progress Notes - Progress Note for Day of: Progress Note Date: 03/01/18 - Chief Complaint Chief Complaint: still distended but no abdominal pain . minimal drainage through NGT .. having loose BM . afebrile . - Past Medical Family Social History Past Med/Fam/Surg Hx: No changes since H&P Allergies: Allergies lisinopril Adverse Reaction (Verified 02/28/18 11:28) - Review Of Systems ROS: No change since H&P - Vital Signs Vital Signs: Temperature 98.2 F Pulse Rate [Apical] 72 Pulse Rate 65 Respiratory Rate 20 Blood Pressure [Right Arm] 165/80 Blood Pressure 103/61 O2 Sat by Pulse Oximetry 94 - Physical Exam Oriented: Normal Eyes: Normal Ear: Normal Nose: Normal Throat: Normal Respiratory: Normal Cardiovascular: Normal : Normal GI:Auscultation: Decreased GI: Tenderness: Diffuse, Mild (distended abdomen , tympanic with only minimal tenderness ,) Speech Pattern: Clear, Appropriate - Laboratory and Diagnostics Result Diagrams: 03/01/18 06:03 03/01/18 06:03 Labs: Laboratory WBC 2.7 X10^3/uL (3.6-10.0) L 03/01/18 06:03 RBC 4.42 X10^6/uL (4.7-6.0) L 03/01/18 06:03 Hgb 13.1 g/dL (13.5-18.0) L 03/01/18 06:03 Hct 39.4 % (42.0-54.0) L 03/01/18 06:03 MCV 89.2 fL (80.0-100.0) 03/01/18 06:03 MCH 29.6 pg (27.0-34.0) 03/01/18 06:03 MCHC 33.1 g/dL (33.0-35.0) 03/01/18 06:03 RDW 14.7 % (11.6-16.5) 03/01/18 06:03 Plt Count 120 X10^3/uL (150.0-450.0) L 03/01/18 06:03 MPV 9.3 fL (7.4-11.0) 03/01/18 06:03 Neut % (Auto) 64.4 % (42.0-75.0) 03/01/18 06:03 Lymph % (Auto) 15.3 % (21.0-51.0) L 03/01/18 06:03 [place] % (Auto) 13.2 % (0.0-13.0) H 03/01/18 06:03 Eos % (Auto) 5.9 % (0.9-2.9) H 03/01/18 06:03 Baso % (Auto) 1.2 % (0.2-1.0) H 03/01/18 06:03 Neut # (Auto) 1.7 x10^3/uL (2.2-4.8) L 03/01/18 06:03 Lymph # (Auto) 0.4 X10^3/uL (1.3-2.9) L 03/01/18 06:03 [place] # (Auto) 0.4 x10^3/uL (0.3-0.8) 03/01/18 06:03 Eos # (Auto) 0.2 x10^3/uL (0.0-0.2) 03/01/18 06:03 Baso # (Auto) 0.0 X10^3/uL (0.0-0.1) 03/01/18 06:03 Absolute Nucleated RBC 0.2 /100WBC 03/01/18 06:03 INR Target Range - 02/28/18 12:11 INR 0.96 (0.8-1.3) 02/28/18 12:11 Sodium 140 mmol/L (136-145) 03/01/18 06:03 Corrected Sodium TNP 03/01/18 06:03 Potassium 3.9 mmol/L (3.5-5.1) 03/01/18 06:03 Chloride 106 mmol/L (98-107) 03/01/18 06:03 Carbon Dioxide 24.8 mmol/L (21-32) 03/01/18 06:03 BUN 16 mg/dL (7-18) 03/01/18 06:03 Creatinine 1.07 mg/dL (0.70-1.30) 03/01/18 06:03 Est GFR (MDRD) Af Amer > 60 (>60) 03/01/18 06:03 Est GFR (MDRD) Non-Af > 60 (>60) 03/01/18 06:03 Glucose 84 mg/dL (65-99) 03/01/18 06:03 Calcium 7.9 mg/dL (8.5-10.1) L 03/01/18 06:03 Corrected Calcium 8.5 mg/dL (8.5-10.1) 03/01/18 06:03 Magnesium 2.0 mg/dL (1.7-2.9) 02/28/18 12:11 Total Bilirubin 0.40 mg/dL (0.2-1.0) 03/01/18 06:03 AST 25 Units/L (15-37) 03/01/18 06:03 ALT 18 Units/L (12-78) 03/01/18 06:03 Alkaline Phosphatase 60 Units/L (46-116) 03/01/18 06:03 Creatine Kinase 103 Units/L (39-308) 02/28/18 12:11 CK-MB (CK-2) < 1.0 ng/mL (0-4.0) 02/28/18 12:11 CK/CKMB % Calc 1.0 % (<4) 02/28/18 12:11 Troponin I < 0.02 ng/mL (0-1.5) 02/28/18 12:11 Total Protein 6.8 g/dL (6.4-8.2) 03/01/18 06:03 Albumin 3.2 g/dL (3.4-5.0) L 03/01/18 06:03 Globulin 3.6 g/dL (2.5-4.5) 03/01/18 06:03 Albumin/Globulin Ratio 0.9 Ratio (1.1-2.1) L 03/01/18 06:03 - Assessment and Plan 1: large bowel obstruction ,. severe ileus vs distal obstruction. for colonoscopy and decompression in am - Problem Patient Problems: Patient Problems Bowel obstruction (Acute) K56.60
--- NOTE | 2018-03-01 10:31 | DR.UPDATE ---
H&P Update History and Physical Update: History and Physical reviewed and patient examined. Changes noted: Yes with the following: IS A 68 YEAR OLD PATIENT OF [facility]. HE PRESENTED TO THE EMERGENCY ROOM AFTER SEEING FIDENCIO IN THE OFFICE. HE PRESENTED WITH COMPLAINTS OF GENERALIZED WEAKNESS, ABDOMINAL PAIN, AND DIARRHEA FOR THE PAST WEEK. SPOUSE REPORTS THAT PATIENT HAS BEEN NOTED WITH AN UNSTEADY GAIT AND DECREASED APPETITE. ON ARRIVAL, VITLAS WERE 96.4-65-14-97%-103 /61. LABS WERE OBTAINED. ABNORMAL LAB VALUES INCLUDE THE FOLLOWING: WBC 2.9, BUN 20, CREATININE 1.34, GFR 57, CALCIUM 8.3. CARDIAC ENZYMES WITHIN NORMAL LIMITS. A BRAIN CT WAS OBTAINED AND REVEALED: Severe periventricular white matter patchy low attenuation compatible with small vessel disease. Severe right maxillary sinus disease. CHEST XRAY STABLE. EKG REVEALED: SINUS RHYTHM WITH HR 64. AN ABDOMEN/PELVIS CT WITH CONTRAST WAS OBTAINED AND REVEALED: Gaseous distention of the transverse colon with partial obstruction at the level of the upper proximal descending colon. This may be on the basis of bowel stricture or adhesions. Endoscopic evaluation is encouraged. Descending and sigmoid colon regions appear to be collapsed. Only a small amount of uncomplicated appearing diverticulosis is seen involving the sigmoid colon. Stable appearing aortoiliac endograft. Multiple small calcified gallstones. Small nonobstructing kidney stones bilaterally. AN NG TUBE WAS PLACED TO LOW INTERMITTENT SUCTION IN THE ER. PATIENT WAS ADMITTED FOR FURTHER EVALUATION AND TREATMENT. WAS CONSULTED. WE PLAN TO FOLLOW UP WITH AM LABS AND KUB AND CONTINUE TO MONITOR.
--- NOTE | 2018-03-01 12:12 | PCM.PROG ---
Progress Note - Progress Note for Day of Date: 03/01/18 - Subjective Subjective: WAS ADMITTED FOR A SMALL BOWEL OBSTRUCTION. TODAY, HE IS ALERT AND ORIENTED, LYING IN BED ON MORNING ROUNDS. SPOUSE AT BEDSIDE. HE CONTINUES WITH COMPLAINTS OF ABDOMINAL PAIN, BUT REPORTS SLIGHT IMPROVEMENT SINCE ADMISSION. HE CONTINUES WITH LOOSE BOWEL MOVMENTS. ON EXAMINATION, NG TUBE NOTED TO INTERMITTENT SUCTION. HEART IS REGULAR IN RATE AND RHYTHM. BILATERAL LUNGS ARE NOTED WITH DIMINISHED LUNG SOUNDS THROUGHOUT. ABDOMEN IS ROUND, SOFT, AND NOTED WITH MILD, DIFFUSE TENDERNESS TO PALPATION. HIS VITALS THIS MORNING ARE 98.2-72-20-94%-165/80. LABS WERE OBTAINED. ABNORMAL LAB VALUES INCLUDE THE FOLLOWING: WBC 2.7, RBC 4.42, HGB 13.1, HCT 39.4, PLT COUNT 120, CALCIUM 7.9, ALBUMIN 3.2. TODAYS KUB REVEALS: Further gaseous distention of the transverse colon, now up to about 13 cm. This is again compatible with the partial obstruction seen on the prior CT scan. No significant gaseous distention of the small bowel is seen. SAW PATIENT THIS MORNING AND PLANS FOR A COLONOSCOPY IN THE MORNING. WE ARE IN AGREEMENT WITH PLAN. OTHERWISE , WE WILL FOLLOW UP WITH AM LABS AND CONTINUE TO MONITOR PATIENT. - Past Medical Family Social History Past Med/Fam/Surg Hx: No changes since H&P Allergies: Allergies lisinopril Adverse Reaction (Verified 02/28/18 11:28) - Review of Systems ROS: No change since H&P - Vital Signs and I&O's Vital Signs: Temperature 98.5 F Pulse Rate [Apical] 70 Pulse Rate 65 Respiratory Rate 20 Blood Pressure [Right Arm] 208/98 Blood Pressure 103/61 O2 Sat by Pulse Oximetry 93 Intake and Output: Intake & Output 02/27/18 02/28/18 03/01/18 03/02/18 11:59 11:59 11:59 11:59 Intake Total 50 / 50 Balance 50 / 50 - Physical Exam Oriented: Normal Eyes: Normal Ear: Normal Nose: Normal Throat: Normal Respiratory: Normal Cardiovascular: Normal : Normal Auscultation: Bowel Sounds: Decreased Palpation: Normal Tenderness: Diffuse, Mild (distended abdomen , tympanic with only minimal tenderness ,) Skin: Normal Musculoskeletal: Normal Psychiatric: Normal Mood Description: Calm Affect: Normal Speech Pattern: Clear, Appropriate - Laboratory and Diagnostics Result Diagrams: 03/01/18 06:03 03/01/18 06:03 Labs: Laboratory WBC 2.7 X10^3/uL (3.6-10.0) L 03/01/18 06:03 RBC 4.42 X10^6/uL (4.7-6.0) L 03/01/18 06:03 Hgb 13.1 g/dL (13.5-18.0) L 03/01/18 06:03 Hct 39.4 % (42.0-54.0) L 03/01/18 06:03 MCV 89.2 fL (80.0-100.0) 03/01/18 06:03 MCH 29.6 pg (27.0-34.0) 03/01/18 06:03 MCHC 33.1 g/dL (33.0-35.0) 03/01/18 06:03 RDW 14.7 % (11.6-16.5) 03/01/18 06:03 Plt Count 120 X10^3/uL (150.0-450.0) L 03/01/18 06:03 MPV 9.3 fL (7.4-11.0) 03/01/18 06:03 Neut % (Auto) 64.4 % (42.0-75.0) 03/01/18 06:03 Lymph % (Auto) 15.3 % (21.0-51.0) L 03/01/18 06:03 [place] % (Auto) 13.2 % (0.0-13.0) H 03/01/18 06:03 Eos % (Auto) 5.9 % (0.9-2.9) H 03/01/18 06:03 Baso % (Auto) 1.2 % (0.2-1.0) H 03/01/18 06:03 Neut # (Auto) 1.7 x10^3/uL (2.2-4.8) L 03/01/18 06:03 Lymph # (Auto) 0.4 X10^3/uL (1.3-2.9) L 03/01/18 06:03 [place] # (Auto) 0.4 x10^3/uL (0.3-0.8) 03/01/18 06:03 Eos # (Auto) 0.2 x10^3/uL (0.0-0.2) 03/01/18 06:03 Baso # (Auto) 0.0 X10^3/uL (0.0-0.1) 03/01/18 06:03 Absolute Nucleated RBC 0.2 /100WBC 03/01/18 06:03 INR Target Range - 02/28/18 12:11 INR 0.96 (0.8-1.3) 02/28/18 12:11 Sodium 140 mmol/L (136-145) 03/01/18 06:03 Corrected Sodium TNP 03/01/18 06:03 Potassium 3.9 mmol/L (3.5-5.1) 03/01/18 06:03 Chloride 106 mmol/L (98-107) 03/01/18 06:03 Carbon Dioxide 24.8 mmol/L (21-32) 03/01/18 06:03 BUN 16 mg/dL (7-18) 03/01/18 06:03 Creatinine 1.07 mg/dL (0.70-1.30) 03/01/18 06:03 Est GFR (MDRD) Af Amer > 60 (>60) 03/01/18 06:03 Est GFR (MDRD) Non-Af > 60 (>60) 03/01/18 06:03 Glucose 84 mg/dL (65-99) 03/01/18 06:03 Calcium 7.9 mg/dL (8.5-10.1) L 03/01/18 06:03 Corrected Calcium 8.5 mg/dL (8.5-10.1) 03/01/18 06:03 Magnesium 2.0 mg/dL (1.7-2.9) 02/28/18 12:11 Total Bilirubin 0.40 mg/dL (0.2-1.0) 03/01/18 06:03 AST 25 Units/L (15-37) 03/01/18 06:03 ALT 18 Units/L (12-78) 03/01/18 06:03 Alkaline Phosphatase 60 Units/L (46-116) 03/01/18 06:03 Creatine Kinase 103 Units/L (39-308) 02/28/18 12:11 CK-MB (CK-2) < 1.0 ng/mL (0-4.0) 02/28/18 12:11 CK/CKMB % Calc 1.0 % (<4) 02/28/18 12:11 Troponin I < 0.02 ng/mL (0-1.5) 02/28/18 12:11 Total Protein 6.8 g/dL (6.4-8.2) 03/01/18 06:03 Albumin 3.2 g/dL (3.4-5.0) L 03/01/18 06:03 Globulin 3.6 g/dL (2.5-4.5) 03/01/18 06:03 Albumin/Globulin Ratio 0.9 Ratio (1.1-2.1) L 03/01/18 06:03 - Plan (1) Bowel obstruction Status: Acute Qualifiers: Intestinal obstruction type: other intestinal obstruction Intestinal obstruction extent: unspecified extent Qualified Code(s): K56.699 - Other intestinal obstruction unspecified as to partial versus complete obstruction Plan: NG TUBE TO LOW INTERMITTENT SUCTION, COLONOSCOPY TOMORROW MORNING, CONTINUE TO MONITOR
[2018-03-01] MEDS: NS 1000 ML 1,000 ML IV SCH ×3 (13:17→20:54)
[2018-03-01] MEDS: COZAAR PO SCH (20:48)
[2018-03-01] MEDS: ZOCOR TAB 40 MG PO SCH (20:49)
[2018-03-01] MEDS ORDERED: LOSARTAN PO SCH (21:00)
[2018-03-02 05:40] LABS: BASOPHILS % (AUTO) 0.4 % (0.2-1.0); EOSINOPHILS # (AUTO) 0.2 x10^3/uL (0.0-0.2); EOSINOPHILS % (AUTO) 4.8 % (0.9-2.9); HEMATOCRIT 40.9 % (42.0-54.0); HEMOGLOBIN 13.7 g/dL (13.5-18.0); LYMPHOCYTES # (AUTO) 0.6 X10^3/uL (1.3-2.9); LYMPHOCYTES % (AUTO) 15.8 % (21.0-51.0); MEAN CORPUSCULAR HEMOGLOBIN 29.8 pg (27.0-34.0); MEAN CORPUSCULAR HGB CONC 33.6 g/dL (33.0-35.0); MEAN CORPUSCULAR VOLUME 88.8 fL (80.0-100.0); MEAN PLATELET VOLUME 9.4 fL (7.4-11.0); MONOCYTES # (AUTO) 0.4 x10^3/uL (0.3-0.8); MONOCYTES % (AUTO) 10.1 % (0.0-13.0); NEUTROPHILS # (AUTO) 2.7 x10^3/uL (2.2-4.8); NEUTROPHILS % (AUTO) 68.9 % (42.0-75.0); PLATELET COUNT 134 X10^3/uL (150.0-450.0); RED CELL DISTRIBUTION WIDTH 14.7 % (11.6-16.5); WHITE BLOOD COUNT 3.9 X10^3/uL (3.6-10.0)
[2018-03-02] MEDS: NS 1000 ML 1,000 ML IV SCH ×3 (05:40→20:44)
[2018-03-02 05:54] LABS: ALANINE AMINOTRANSFERASE 16 Units/L (12-78); ALBUMIN 3.5 g/dL (3.4-5.0); ALKALINE PHOSPHATASE 60 Units/L (46-116); ASPARTATE AMINO TRANSFERASE 27 Units/L (15-37); BLOOD UREA NITROGEN 10 mg/dL (7-18); CARBON DIOXIDE 21.3 mmol/L (21-32); CHLORIDE 106 mmol/L (98-107); CREATININE 0.95 mg/dL (0.70-1.30); SODIUM 139 mmol/L (136-145); TOTAL PROTEIN 7.3 g/dL (6.4-8.2); eGFR NON BLACK RACES > 60 (>60)
--- NOTE | 2018-03-02 07:07 | RAD ---
Abdomen single view Indication: Follow-up bowel obstruction Findings: Comparison is made to March 01, 2018 There is persistent marked distention of the redundant transverse colon measuring up to 13 cm similar to the prior study. There are adjacent interposed bowel loops. There is re-demonstration of endovasc ular aortic stent graft. The skeleton is negative. Impression: 1. 1. Persistent gaseous distention of the redundant segment of the colon. Persistent bow el obstruction which may be partial or incomplete again is suspected unchanged from prior study Reported By:
[2018-03-02] MEDS: PEPCID 20 MG IV PREMIX* 20 MG/50 ML BAG IV SCH ×2 (09:04→20:44)
[2018-03-02] MEDS: LOPRESSOR TAB 50 MG PO SCH ×2 (09:04→20:44)
[2018-03-02] MEDS: PROTONIX INJ 40 MG VIAL IVP SCH ×2 (09:05→20:44)
[2018-03-02] MEDS: CHECK PATCH XX SCH ×2 (09:06→20:45)
[2018-03-02] MEDS ORDERED: LR 1000 ML IV 1,000 ML IV ONE (10:34)
[2018-03-02] MEDS ORDERED: DIPRIVAN VIAL 20 ML ONE (10:43)
[2018-03-02] MEDS: CELEXA PO SCH (11:34)
[2018-03-02] MEDS: VITAMIN D3 PO SCH (11:34)
[2018-03-02] MEDS: ZOCOR TAB 40 MG PO SCH (20:44)
[2018-03-02] MEDS: COZAAR PO SCH (20:44)
[2018-03-03] MEDS: NS 1000 ML 1,000 ML IV SCH ×2 (04:23→12:56)
[2018-03-03 06:36] LABS: BASOPHILS % (AUTO) 0.6 % (0.2-1.0); EOSINOPHILS # (AUTO) 0.2 x10^3/uL (0.0-0.2); HEMATOCRIT 40.4 % (42.0-54.0); HEMOGLOBIN 13.5 g/dL (13.5-18.0); LYMPHOCYTES # (AUTO) 0.6 X10^3/uL (1.3-2.9); MEAN CORPUSCULAR HEMOGLOBIN 29.7 pg (27.0-34.0); MEAN CORPUSCULAR HGB CONC 33.4 g/dL (33.0-35.0); MEAN CORPUSCULAR VOLUME 88.7 fL (80.0-100.0); MEAN PLATELET VOLUME 9.3 fL (7.4-11.0); MONOCYTES # (AUTO) 0.5 x10^3/uL (0.3-0.8); MONOCYTES % (AUTO) 11.9 % (0.0-13.0); NEUTROPHILS # (AUTO) 2.7 x10^3/uL (2.2-4.8); NEUTROPHILS % (AUTO) 67.5 % (42.0-75.0); PLATELET COUNT 147 X10^3/uL (150.0-450.0); RED BLOOD COUNT 4.55 X10^6/uL (4.7-6.0); RED CELL DISTRIBUTION WIDTH 14.4 % (11.6-16.5)
[2018-03-03 07:05] LABS: ALANINE AMINOTRANSFERASE 19 Units/L (12-78); ALBUMIN 3.2 g/dL (3.4-5.0); ALKALINE PHOSPHATASE 59 Units/L (46-116); ASPARTATE AMINO TRANSFERASE 25 Units/L (15-37); BLOOD UREA NITROGEN 9 mg/dL (7-18); CALCIUM 7.9 mg/dL (8.5-10.1); CARBON DIOXIDE 26.5 mmol/L (21-32); CHLORIDE 107 mmol/L (98-107); COR CA(FOR HYPOALB) 8.5 mg/dL (8.5-10.1); CREATININE 0.82 mg/dL (0.70-1.30); SODIUM 142 mmol/L (136-145); TOTAL PROTEIN 6.8 g/dL (6.4-8.2); eGFR NON BLACK RACES > 60 (>60)
--- NOTE | 2018-03-03 08:25 | PCM.PROG ---
Progress Note - Progress Note for Day of Date of Exam: 03/02/18 - Subjective Subjective: WAS ADMITTED FOR A SMALL BOWEL OBSTRUCTION. TODAY, HE IS ALERT AND ORIENTED, LYING IN BED ON MORNING ROUNDS. SPOUSE AT BEDSIDE. HE CONTINUES WITH COMPLAINTS OF MILD ABDOMINAL PAIN. HE ALSO CONTINUES WITH LOOSE BOWEL MOVMENTS. ON EXAMINATION, NG TUBE NOTED TO INTERMITTENT SUCTION. HEART IS REGULAR IN RATE AND RHYTHM. BILATERAL LUNGS ARE NOTED WITH DIMINISHED LUNG SOUNDS THROUGHOUT. ABDOMEN IS ROUND, SOFT, AND NOTED WITH MILD, DIFFUSE TENDERNESS TO PALPATION. HIS VITALS THIS MORNING ARE 98.6-73-18-97%-160/98. LABS WERE OBTAINED. ABNORMAL LAB VALUES INCLUDE THE FOLLOWING: RBC 4.60, HCT 40.9, PLT COUNT 134, CALCIUM 8.0. TODAYS KUB REVEALS: Persistent gaseous distention of the redundant segment of the colon. Persistent bowel obstruction which may be partial or incomplete again is suspected unchanged from prior study. SAW PATIENT THIS MORNING AND PLANS FOR A COLONOSCOPY TODAY. WE ARE IN AGREEMENT WITH PLAN. OTHERWISE, WE WILL FOLLOW UP WITH AM LABS AND CONTINUE TO MONITOR PATIENT. - Past Medical Family Social History Past Med/Fam/Surg Hx: No changes since H&P Allergies: Allergies lisinopril Adverse Reaction (Verified 02/28/18 11:28) - Review of Systems ROS: No change since H&P - Vital Signs and I&O's Vital Signs: Temperature 98.1 F Pulse Rate [Apical] 68 Pulse Rate 65 Respiratory Rate 20 Blood Pressure [Right Arm] 192/90 Blood Pressure 103/61 O2 Sat by Pulse Oximetry 97 Intake and Output: Intake & Output 02/28/18 03/01/18 03/02/18 03/03/18 11:59 11:59 11:59 11:59 Intake Total 50 / 50 850 / 850 2405 / 2405 Balance 50 / 50 850 / 850 2405 / 2405 - Physical Exam Oriented: Normal Eyes: Normal Ear: Normal Nose: Normal Throat: Normal Respiratory: Normal Cardiovascular: Normal : Normal Auscultation: Bowel Sounds: Decreased Tenderness: Diffuse, Mild (distended abdomen , tympanic with only minimal tenderness ,) Skin: Normal Musculoskeletal: Normal Psychiatric: Normal Mood Description: Calm Affect: Normal Speech Pattern: Clear, Appropriate - Laboratory and Diagnostics Result Diagrams: 03/03/18 05:18 03/03/18 05:18 Labs: Laboratory WBC 4.0 X10^3/uL (3.6-10.0) 03/03/18 05:18 RBC 4.55 X10^6/uL (4.7-6.0) L 03/03/18 05:18 Hgb 13.5 g/dL (13.5-18.0) 03/03/18 05:18 Hct 40.4 % (42.0-54.0) L 03/03/18 05:18 MCV 88.7 fL (80.0-100.0) 03/03/18 05:18 MCH 29.7 pg (27.0-34.0) 03/03/18 05:18 MCHC 33.4 g/dL (33.0-35.0) 03/03/18 05:18 RDW 14.4 % (11.6-16.5) 03/03/18 05:18 Plt Count 147 X10^3/uL (150.0-450.0) L 03/03/18 05:18 MPV 9.3 fL (7.4-11.0) 03/03/18 05:18 Neut % (Auto) 67.5 % (42.0-75.0) 03/03/18 05:18 Lymph % (Auto) 15.0 % (21.0-51.0) L 03/03/18 05:18 [place] % (Auto) 11.9 % (0.0-13.0) 03/03/18 05:18 Eos % (Auto) 5.0 % (0.9-2.9) H 03/03/18 05:18 Baso % (Auto) 0.6 % (0.2-1.0) 03/03/18 05:18 Neut # (Auto) 2.7 x10^3/uL (2.2-4.8) 03/03/18 05:18 Lymph # (Auto) 0.6 X10^3/uL (1.3-2.9) L 03/03/18 05:18 [place] # (Auto) 0.5 x10^3/uL (0.3-0.8) 03/03/18 05:18 Eos # (Auto) 0.2 x10^3/uL (0.0-0.2) 03/03/18 05:18 Baso # (Auto) 0.0 X10^3/uL (0.0-0.1) 03/03/18 05:18 Absolute Nucleated RBC 0.0 /100WBC 03/03/18 05:18 INR Target Range - 02/28/18 12:11 INR 0.96 (0.8-1.3) 02/28/18 12:11 Sodium 142 mmol/L (136-145) 03/03/18 05:18 Corrected Sodium TNP 03/03/18 05:18 Potassium 3.6 mmol/L (3.5-5.1) 03/03/18 05:18 Chloride 107 mmol/L (98-107) 03/03/18 05:18 Carbon Dioxide 26.5 mmol/L (21-32) 03/03/18 05:18 BUN 9 mg/dL (7-18) 03/03/18 05:18 Creatinine 0.82 mg/dL (0.70-1.30) 03/03/18 05:18 Est GFR (MDRD) Af Amer > 60 (>60) 03/03/18 05:18 Est GFR (MDRD) Non-Af > 60 (>60) 03/03/18 05:18 Glucose 97 mg/dL (65-99) 03/03/18 05:18 Calcium 7.9 mg/dL (8.5-10.1) L 03/03/18 05:18 Corrected Calcium 8.5 mg/dL (8.5-10.1) 03/03/18 05:18 Magnesium 2.0 mg/dL (1.7-2.9) 02/28/18 12:11 Total Bilirubin 0.40 mg/dL (0.2-1.0) 03/03/18 05:18 AST 25 Units/L (15-37) 03/03/18 05:18 ALT 19 Units/L (12-78) 03/03/18 05:18 Alkaline Phosphatase 59 Units/L (46-116) 03/03/18 05:18 Creatine Kinase 103 Units/L (39-308) 02/28/18 12:11 CK-MB (CK-2) < 1.0 ng/mL (0-4.0) 02/28/18 12:11 CK/CKMB % Calc 1.0 % (<4) 02/28/18 12:11 Troponin I < 0.02 ng/mL (0-1.5) 02/28/18 12:11 Total Protein 6.8 g/dL (6.4-8.2) 03/03/18 05:18 Albumin 3.2 g/dL (3.4-5.0) L 03/03/18 05:18 Globulin 3.6 g/dL (2.5-4.5) 03/03/18 05:18 Albumin/Globulin Ratio 0.9 Ratio (1.1-2.1) L 03/03/18 05:18 Stl C. diff Tox B Gene Negative (NEGATIVE) 03/01/18 12:30 Stl C. diff [id number] Negative (NEGATIVE) 03/01/18 12:30 Tissue Pathology To follow 03/02/18 11:10 - Plan (1) Bowel obstruction Status: Acute Qualifiers: Intestinal obstruction type: other intestinal obstruction Intestinal obstruction extent: unspecified extent Qualified Code(s): K56.699 - Other intestinal obstruction unspecified as to partial versus complete obstruction Plan: NG TUBE TO LOW INTERMITTENT SUCTION, COLONOSCOPY TODAY, CONTINUE TO MONITOR (2) Hypertension Status: Chronic Qualifiers: Hypertension type: essential hypertension Qualified Code(s): I10 - Essential (primary) hypertension Plan: CONTINUE CLONIDINE, CONTINUE LOSARTAN, CONTINUE LOPRESSOR, CONTINUE TO MONITOR (3) Hyperlipidemia Status: Chronic Qualifiers: Hyperlipidemia type: mixed hyperlipidemia Qualified Code(s): E78.2 - Mixed hyperlipidemia Plan: CONTINUE ZOCOR, CONTINUE TO MONITOR (4) Depression Status: Acute Qualifiers: Depression Type: major depressive disorder Major depression recurrence: recurrent Active/Remission status: remission status unspecified Qualified Code(s): F33.9 - Major depressive disorder, recurrent, unspecified Plan: CONTINUE CELEXA, CONTINUE TO MONITOR
--- NOTE | 2018-03-03 08:40 | RAD ---
HISTORY: Small bowel obstruction Study: KUB Comparison: 03/02/2018 Findings: A moderate amount of gas is noted within the colon which is moderately redundant. No appreciable dis tention of colon is noted. It has markedly decreased in size when compared to the prior examination. Gas is noted in the region of the sigmoid colon and rectum. Vascular stents are present. There ap pear to be prostate beads present. Mild degenerative changes present in the lumbar spine and hips. IMPRESSION: 1. Significant decrease in the amount of colonic gas. The colon is now nondistended but contains a moderate amount of gas. This may be due to a resolving bowel obstruction or ileus. Continued follow -up is recommended Reported By:
--- NOTE | 2018-03-03 09:45 | DR.PROGNOT ---
Hospital Progress Notes - Progress Note for Day of: Progress Note Date: 03/03/18 - Chief Complaint Chief Complaint: feeling much better . abdominal distention had subsided and had small BM. abdominal xray showed normal findings . lab work is normal . - Past Medical Family Social History Past Med/Fam/Surg Hx: No changes since H&P Allergies: Allergies lisinopril Adverse Reaction (Verified 02/28/18 11:28) - Review Of Systems ROS: No change since H&P - Vital Signs Vital Signs: Temperature 98.1 F Pulse Rate [Apical] 68 Pulse Rate 65 Respiratory Rate 20 Blood Pressure [Right Arm] 192/90 Blood Pressure 103/61 O2 Sat by Pulse Oximetry 97 - Physical Exam Oriented: Normal Eyes: Normal Ear: Normal Nose: Normal Throat: Normal Respiratory: Normal Cardiovascular: Normal : Normal GI:Auscultation: Normal GI:Palpation: Normal GI: Tenderness: Normal, Mild (soft abdomen , non tender , only mild tympany .) Skin: Normal Musculoskeletal: Normal Psychiatric: Normal Mood Description: Calm Affect: Normal Speech Pattern: Clear, Appropriate - Laboratory and Diagnostics Result Diagrams: 03/03/18 05:18 03/03/18 05:18 Labs: Laboratory WBC 4.0 X10^3/uL (3.6-10.0) 03/03/18 05:18 RBC 4.55 X10^6/uL (4.7-6.0) L 03/03/18 05:18 Hgb 13.5 g/dL (13.5-18.0) 03/03/18 05:18 Hct 40.4 % (42.0-54.0) L 03/03/18 05:18 MCV 88.7 fL (80.0-100.0) 03/03/18 05:18 MCH 29.7 pg (27.0-34.0) 03/03/18 05:18 MCHC 33.4 g/dL (33.0-35.0) 03/03/18 05:18 RDW 14.4 % (11.6-16.5) 03/03/18 05:18 Plt Count 147 X10^3/uL (150.0-450.0) L 03/03/18 05:18 MPV 9.3 fL (7.4-11.0) 03/03/18 05:18 Neut % (Auto) 67.5 % (42.0-75.0) 03/03/18 05:18 Lymph % (Auto) 15.0 % (21.0-51.0) L 03/03/18 05:18 [place] % (Auto) 11.9 % (0.0-13.0) 03/03/18 05:18 Eos % (Auto) 5.0 % (0.9-2.9) H 03/03/18 05:18 Baso % (Auto) 0.6 % (0.2-1.0) 03/03/18 05:18 Neut # (Auto) 2.7 x10^3/uL (2.2-4.8) 03/03/18 05:18 Lymph # (Auto) 0.6 X10^3/uL (1.3-2.9) L 03/03/18 05:18 [place] # (Auto) 0.5 x10^3/uL (0.3-0.8) 03/03/18 05:18 Eos # (Auto) 0.2 x10^3/uL (0.0-0.2) 03/03/18 05:18 Baso # (Auto) 0.0 X10^3/uL (0.0-0.1) 03/03/18 05:18 Absolute Nucleated RBC 0.0 /100WBC 03/03/18 05:18 INR Target Range - 02/28/18 12:11 INR 0.96 (0.8-1.3) 02/28/18 12:11 Sodium 142 mmol/L (136-145) 03/03/18 05:18 Corrected Sodium TNP 03/03/18 05:18 Potassium 3.6 mmol/L (3.5-5.1) 03/03/18 05:18 Chloride 107 mmol/L (98-107) 03/03/18 05:18 Carbon Dioxide 26.5 mmol/L (21-32) 03/03/18 05:18 BUN 9 mg/dL (7-18) 03/03/18 05:18 Creatinine 0.82 mg/dL (0.70-1.30) 03/03/18 05:18 Est GFR (MDRD) Af Amer > 60 (>60) 03/03/18 05:18 Est GFR (MDRD) Non-Af > 60 (>60) 03/03/18 05:18 Glucose 97 mg/dL (65-99) 03/03/18 05:18 Calcium 7.9 mg/dL (8.5-10.1) L 03/03/18 05:18 Corrected Calcium 8.5 mg/dL (8.5-10.1) 03/03/18 05:18 Magnesium 2.0 mg/dL (1.7-2.9) 02/28/18 12:11 Total Bilirubin 0.40 mg/dL (0.2-1.0) 03/03/18 05:18 AST 25 Units/L (15-37) 03/03/18 05:18 ALT 19 Units/L (12-78) 03/03/18 05:18 Alkaline Phosphatase 59 Units/L (46-116) 03/03/18 05:18 Creatine Kinase 103 Units/L (39-308) 02/28/18 12:11 CK-MB (CK-2) < 1.0 ng/mL (0-4.0) 02/28/18 12:11 CK/CKMB % Calc 1.0 % (<4) 02/28/18 12:11 Troponin I < 0.02 ng/mL (0-1.5) 02/28/18 12:11 Total Protein 6.8 g/dL (6.4-8.2) 03/03/18 05:18 Albumin 3.2 g/dL (3.4-5.0) L 03/03/18 05:18 Globulin 3.6 g/dL (2.5-4.5) 03/03/18 05:18 Albumin/Globulin Ratio 0.9 Ratio (1.1-2.1) L 03/03/18 05:18 Stl C. diff Tox B Gene Negative (NEGATIVE) 03/01/18 12:30 Stl C. diff [id number] Negative (NEGATIVE) 03/01/18 12:30 Tissue Pathology To follow 03/02/18 11:10 - Assessment and Plan 1: subsided severe ileus . s/p colonoscopy and decompression . Pt could be discharged and will follow as OP . - Problem Patient Problems: Patient Problems Bowel obstruction (Acute) K56.609
[2018-03-03] MEDS: CELEXA PO SCH (10:02)
[2018-03-03] MEDS: PEPCID 20 MG IV PREMIX* 20 MG/50 ML BAG IV SCH (10:02)
[2018-03-03] MEDS: PROTONIX INJ 40 MG VIAL IVP SCH (10:02)
[2018-03-03] MEDS: CHECK PATCH XX SCH (10:02)
[2018-03-03] MEDS: VITAMIN D3 PO SCH (10:02)
[2018-03-03] MEDS: LOPRESSOR TAB 50 MG PO SCH (10:02)
[2018-03-03 12:56] VITALS: BP 181/84
--- NOTE | 2018-03-28 10:36 | DR.CARTERD ---
- Discharge Summary for: Discharge Summary for Date of:: 03/03/18 - Admission Date Date of Admission: 02/28/18 - Admission Diagnoses Admission Diagnosis: (1) Abdominal pain (2) Bowel obstruction (3) Hypertension (4) Hyperlipidemia (5) Depression - Discharge Date Discharge Date: 03/03/18 - Discharge Diagnoses Discharge Diagnosis: (1) Abdominal pain (2) Bowel obstruction (3) Hypertension (4) Hyperlipidemia (5) Depression - Hospital Course Hospital Course: DAY ONE, MR. WINSTON IS A 68 YEAR OLD PATIENT OF FIDENCIO TOBIAS. HE PRESENTED TO THE EMERGENCY ROOM AFTER SEEING FIDENCIO IN THE OFFICE. HE PRESENTED WITH COMPLAINTS OF GENERALIZED WEAKNESS, ABDOMINAL PAIN, AND DIARRHEA FOR ONE WEEK PRIOR. SPOUSE REPORTED THAT PATIENT HAD BEEN NOTED WITH AN UNSTEADY GAIT AND DECREASED APPETITE. ON ARRIVAL, VITALS WERE 96.4-65-14-97%-103/61. LABS WERE OBTAINED. ABNORMALS INCLUDED: WBC 2.9, BUN 20, CREAT 1.34, GFR 57, CALCIUM 8.3. CARDIAC ENZYMES WNL. A BRAIN CT WAS OBTAINED AND REPORTED: SEVERE PERIVENTRICULAR WHITE MATTER PATCHY LOW ATTENUATION COMPATIBLE WITH SMALL VESSEL DISEASE. SEVERE RIGHT MAXILLARY SINUS DISEASE. CHEST XRAY STABLE. EKG REPORTED: SINUS RHYTHM, RATE 64. AN ABDOMEN. PELVIS CT WITH CONTRAST WAS OBTAINED AND REVEALED: GASEOUS DISTENTION OF THE TRANSVERSE COLON WITH PARTIAL OBSTRUCTION AT THE LEVEL OF THE UPPER PROXIMAL DESCENDING COLON; THIS MAY BE ON THE BASIS OF BOWEL STRICTURE OR ADHESIONS; ENDOSCOPIC EVALUATION IS ENCOURAGED DESCENDING AND SIGMOID COLON REGIONS APPEAR TO BE COLLAPSED; ONLY A SMALL AMOUNT OF UNCOMPLICATED APPEARING DIVERTICULOSIS IS SEEN INVOLVING THE SIGMOID COLON; STABLE APPEARING AORTOILIAC ENDOGRAFT; MULTIPLE SMALL CALCIFIED GALLSTONES; SMALL NONOBSTRUCTING KIDNEY STONES BILATERALLY. AN NG TUBE WAS PLACED TO LOW INTERMITTENT SUCTION IN THE ER. PATIENT WAS ADMITTED FOR FURTHER EVALUATION AND TREATMENT. DR. VALENTINE WAS CONSULTED. DAY TWO, MR. WINSTON WAS ADMITTED FOR A SMALL BOWEL OBSTRUCTION. HE WAS ALERT AND ORIENTED, LYING IN BED ON MORNING ROUNDS. SPOUSE AT BEDSIDE. HE CONTINUED WITH COMPLAINTS OF ABDOMINAL PAIN, BUT REPORTED SLIGHT IMPROVEMENT SINCE ADMISSION. HE CONTINUED WITH LOOSE BOWEL MOVEMENTS. ON EXAMINATION, NG TUBE NOTED TO INTERMITTENT SUCTION. HEART WAS REGULAR IN RATE AND RHYTHM. BILATERAL LUNGS WERE NOTED WITH DIMINISHED LUNG SOUNDS THROUGHOUT. ABDOMEN WAS ROUND, SOFT, AND NOTED WITH MILD, DIFFUSE TENDERNESS TO PALPATION. HIS VITALS WERE 98.2-72-20-94% -165/80. LABS WERE OBTAINED. ABNORMAL LAB VALUES INCLUDED THE FOLLOWING: WBC 2.7 , RBC 4.42, HGB 13.1, HCT 39.4, PLT COUNT 120, CALCIUM 7.9, ALBUMIN 3.2. KUB REPORTED: FURTHER GASEOUS DISTENTION OF THE TRANSVERSE COLON, NOW UP TO ABOUT 13CM; THIS IS AGAIN COMPATIBLE WITH THE PARTIAL OBSTRUCTION SEEN ON THE PRIOR CT SCAN; NO SIGNIFICANT GASEOUS DISTENTION OF THE SMALL BOWEL IS SEEN. CONSULTED AND PLANNED FOR A COLONOSCOPY THE FOLLOWING MORNING. WE WERE IN AGREEMENT WITH PLANS. DAY THREE, MR. WINSTON WAS ADMITTED FOR A SMALL BOWEL OBSTRUCTION. HE WAS ALERT AND ORIENTED, LYING IN BED ON MORNING ROUNDS. SPOUSE AT BEDSIDE. HE CONTINUED WITH COMPLAINTS OF MILD ABDOMINAL PAIN. HE ALSO CONTINUED WITH LOOSE BOWEL MOVEMENTS. ON EXAMINATION, NG TUBE CONTINUED TO INTERMITTENT SUCTION. HEART WAS REGULAR IN RATE AND RHYTHM. BILATERAL LUNGS WERE NOTED WITH DIMINISHED LUNG SOUNDS THROUGHOUT. ABDOMEN WAS ROUND, SOFT, AND NOTED WITH MILD, DIFFUSE TENDERNESS TO PALPATION. HIS VITALS WERE 98.6-73-18-97%-160/98. LABS WERE OBTAINED. ABNORMAL LAB VALUES INCLUDED THE FOLLOWING: RBC 4.60, HCT 40.9, PLT COUNT 134, CALCIUM 8.0. KUB REVEALED: PERSISTENT GASEOUS DISTENTION OF THE REDUNDANT SEGMENT OF THE COLON; PERSISTENT BOWEL OBSTRUCTION WHICH MAY BE PARTIAL OR INCOMPLETE AGAIN IS SUSPECTED UNCHANGED FROM PRIOR STUDY. PERFORMED A COLONOSCOPY IN THE OPERATING ROOM THAT REPORTED: NO EVIDENCE OF ANY OBSTRUCTING LESION OF THE COLON INVOLVING THE LEFT SIDE OF THE COLON; MILD NONSPECIFIC COLITIS INVOLVING THE DISTAL SIGMOID; SEVERAL RECTAL POLYPS, THESE WERE SMALL AND LOOKED COMPLETELY BENIGN; HEMORRHOIDS WITH PROLAPSE. NG TUBE WAS DISCONTINUED. PATIENT WAS STARTED ON A CLEAR LIQUID DIET AND WE CONTINUED TO MONITOR. DAY FOUR, PATIENT REPORTED HE WAS FEELING BETTER. HE DENIED ABDOMINAL PAIN. PATIENT REPORTED SMALL, NORMAL BOWEL MOVEMENT AND WAS PASSING FLATUS. NO ABDOMINAL DISTENTION WAS NOTED. PATIENT DENIED NAUSEA OR VOMITING. PATIENT WAS TOLERATING DIET WELL. VITAL SIGNS STABLE. LABS WNL. WE PLANNED FOR DISCHARGE. INSTRUCTIONS FOR MEDICATIONS AND FOLLOW UP WERE DISCUSSED WITH PATIENT AND FAMILY, BOTH VOICED UNDERSTANDING. PATIENT DISCHARGED HOME IN STABLE CONDITION WITH FAMILY. - Discharge Medications Discharge Medications: Home Medication List cholecalciferol (vitamin D3) [Vitamin D3] 1 cap PO DAILY 02/28/18 [History] losartan 1 tab PO HS 02/28/18 [History] pantoprazole 1 tab PO BID 02/28/18 [History] amlodipine [Norvasc] 5 mg PO DAILY #30 tab 03/03/18 [Rx] Prescriptions: amlodipine [Norvasc] Migue lAngel Gonsalez Home medications aspirin [Aspir-Low] 1 tab PO DAILY 04/07/17 citalopram 2 tabs PO DAILY 04/07/17 meloxicam 1 tab PO DAILY 04/07/17 simvastatin 1 tab PO HS 04/07/17 tramadol 1 tab PO TID PRN 04/07/17 metoprolol tartrate 50 mg PO BID #60 tab 04/10/17 clonidine 1 each TD WEEKLY #4 tdsy 04/14/17 - Discharge Disposition Discharge Disposition: PATIENT IS TO FOLLOW UP WITH DR. VALENTINE IN ONE WEEK.
== END 2018-03-03 13:10 | disposition home or self-care (01) | DRG 389 ==
LOC: ER 11:12 → MED/SURG 15:31
PROVIDERS: ADMIT Internal Medicine; ATTEND Internal Medicine
DX: K56.699 Other intestinal obstruction unspecified as to partial versus complete obstruction; R53.1 Weakness; K62.1 Rectal polyp; K64.8 Other hemorrhoids; I10 Essential (primary) hypertension; R10.84 Generalized abdominal pain; I25.10 Atherosclerotic heart disease of native coronary artery without angina pectoris; E78.2 Mixed hyperlipidemia; Z87.898 Personal history of other specified conditions; R19.7 Diarrhea, unspecified; K52.89 Other specified noninfective gastroenteritis and colitis; R26.89 Other abnormalities of gait and mobility; F33.8 Other recurrent depressive disorders
CPT/HCPCS: 36415; 43753; 70450; 71010; 71045; 74000; 74018; 74177; 80053; 82378; 82550; 82553; 83735; 84484; 85025; 85610; 87493; 88305; 93005; 93010; 96365; 96367; 99284; A4222; C9113; S0028; A4217; J2704; J7030; J7050; J7120